=== PATIENT | male | born 1970 | race Caucasian/White ===

== ENCOUNTER 2017-02-18 22:26 | Inpatient (IN) ==
[2017-02-19] MEDS ORDERED: HYDROmorphone 2 MG/1 ML VIAL IV STA (00:43)
[2017-02-19] MEDS ORDERED: ONDANSETRON 4 MG/2 ML VIAL IV STA (00:43)
[2017-02-19 00:58] LABS: INR 1.3; PT Patient Result 13.7 SECS; Partial Thromboplastin Time 29.1 SECS (0-40)
[2017-02-19] MEDS ORDERED: HYDROmorphone 2 MG/1 ML VIAL ONE (01:03)
[2017-02-19] MEDS ORDERED: ONDANSETRON 4 MG/2 ML VIAL ONE (01:03)
[2017-02-19 01:08] LABS: Alanine Aminotransferase 21 U/L (16-61); Albumin 3.6 G/DL (3.4-5.0); Alkaline Phosphatase 122 U/L (45-117); Aspartate Amino Transferase 25 U/L (0-37); Blood Urea Nitrogen 15 MG/DL (7-18); Calcium 9.2 MG/DL (8.5-10.1); Glucose 98 MG/DL (74-106); Osmolality,Calculated 275.7 MOS/KG (273-304); Potassium 3.6 MMOL/L (3.5-5.1); Sodium 138 MMOL/L (136-145); Total Protein 7.1 G/DL (6.4-8.3); Troponin I Only 0.034 NG/ML (0.00-0.045)
[2017-02-19 01:11] LABS: Basophils # 0.1 10*3/uL (0.0-0.2); Eosinophils # 0.1 10*3/uL (0.0-0.87); Eosinophils % 2.7 % (0.00-10.9); Hematocrit 34.3 VOL% (42.0-52.0); Hemoglobin 11.3 GM/DL (14.0-18.0); Immature Granulocytes % 0.2 %; Immature Granulocytes Absolute 0.01 #; Lymphocytes # 1.6 10*3/uL (1.4-4.0); Lymphocytes % 29.7 % (21.2-54.2); Mean Corpuscular HGB Conc 32.9 GM/DL (32-36); Mean Corpuscular Hemoglobin 29 PG (27-34); Mean Corpuscular Volume 88.4 FL (87-102); Mean Platelet Volume 11.4 FL (9.6-12.0); Monocytes # 0.5 10*3/uL (0.11-0.8); Monocytes % 8.9 % (1.7-12.7); Neutrophils % 57.5 % (38.7-73.9); Platelet Count 172 T/CUMM (130-400); Red Blood Count 3.88 MC/CUMM (3.8-5.5); Red Cell Distribution Width 18.9 % (9.3-17.3); White Blood Count 5.3 T/CUMM (4-12)
--- NOTE | 2017-02-19 01:33 | Emergency Department Note ---
IMichael Kasabria, am scribing for, and in the presence of, Camila Strickland DO 00 :47. IMarco A Debra, DO, personally performed the services described in this documentation, ascribed by Walter Rodriguez in my presence, and it is both accurate and complete . Arrival - Arrival Chief Complaint: Extremity Problem Stated Complaint: feet swollen/cant breathe/tight all over ED Nursing Triage Note: Patient complains of swelling and tightness from stomach on down. Patient states that tightness around stomach makes it harder for him to breath. O2 saturation at 99% upon triage and lungs sounds clear to auscultation. +2 pitting edema noted to bilateral lower extremities upon triage. Hx of HTN and CHF. 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 Mode of Arrival: Wheelchair Limitations: No Limitations Source: Patient, Family (mother ) Time Seen by Provider: 02/19/17 00:18 - History of Present Illness HPI Narrative: This is a 46 y/o white male presenting to the ED with c/o tightness and distention of his abdomen that onset a few days ago. Pt was a heavy drinker but stopped when he was diagnosed with heart complications. Pt states he now drinkers occasionally. He is followed by Dr. Herrera. He states his abdomen is distended and it is making it hard for him to breathe. Pt also states for the past month he has had urinary incontinence and has been constipate. Pt has bilateral pedal edema and has a PMHx of HTN and CHF. Earlier today he vomited and it was yellow in color. He denies fever, chills, nausea, diarrhea, back pain , and trouble walking. This is the first time he has seen anyone for his abdomen swelling. Consistency: constant Severity: moderate Allergies/Adverse Reactions: Allergies Allergy/AdvReac Type Severity Reaction Status Date / Time Shrimp Allergy SHORTNESS Verified 01/06/16 17:08 OF BREATH Home Medications: Home Medications Medication Instructions Recorded Confirmed Type Allopurinol [Zyloprim] 300 mg PO DAILY 08/14/15 02/18/17 History Aspirin EC Tab 81 mg PO DAILY #30 tablet 08/17/15 02/18/17 Rx Atorvastatin [Lipitor] 80 mg PO BEDTIME #30 tablet 08/17/15 02/18/17 Rx Carvedilol [Coreg] 6.25 mg PO BID #60 tablet 08/17/15 02/18/17 Rx Clopidogrel [Plavix] 75 mg PO DAILY #30 tablet 08/17/15 02/18/17 Rx Famotidine Tab [Pepcid Tab] 20 mg PO BID #30 tablet 08/17/15 02/18/17 Rx Glucosamine/D3/Boswellia Mary 1 each PO DAILY 01/06/16 02/18/17 History [Osteo Bi-Flex Caplet] Lisinopril [Prinivil] 5 mg PO DAILY 08/21/16 02/18/17 History Furosemide Tab [Lasix Tab] 40 mg PO BID DIURETIC #60 tablet 09/17/16 02/18/17 Rx Azithromycin Tab [Zithromax Tab] 250 mg PO DAILY #6 tablet 10/05/16 02/18/17 Rx Review of System - Review of System 12 point system: reviewed and no additional remarkable complaints except as stated - Review of System Constitutional: Absent: chills, fever, weakness Eyes: Absent: vision change Head/Ears/Nose/Throat: Absent: nasal drainage Respiratory: Absent: cough, wheezing Cardiovascular: Absent: chest pain, dyspnea on exertion Gastrointestinal: Present: abdominal pain (distended ), nausea, vomiting, constipation. Absent: diarrhea Genitourinary male: Present: other (urinary incontinence x2 months ). Absent: dysuria Musculoskeletal: Absent: arm pain, back pain Skin: Absent: rash Neurological: Absent: headache, weakness, confusion, vertigo Psychiatric: Absent: anxiety Endocrine: Absent: fatigue Hematological/Lymphatic: Absent: easy bleeding Allergic/Immunologic: Absent: facial swelling Medical,Surgical,& Family Hx - Medical History Cardio: History of: CHF, CAD, Hypertension Neurology: No history of: Seizures Endocrine: History of: Dyslipidemia Rheumatology: History of;: Gout Musculoskeletal: History of: Back/Neck Problems - Surgical History Cardiac Surgeries: Sugical HX of: Cardiac Catheterization, Internal Defibrillator Thoracic Surgeries: Patient denies;: Organ Transplant, Lobectomy Neurologic Surgeries: Patient denies: Neurologic Surgery HEENT Surgeries: Surgical HX of: Eye Surgery (cataract surgery x 2 in 2012) - Family History Family History: Reports;: Family Heart Disease (father at age of 48. mother had mi.), Family Hypertension, Family Stroke (father had stroke.) - Social History Smoking Status: Former smoker Frequency of Alcohol Use: Occasionally Type of Drug Use: None Exam Vital Signs: Vital Signs Temperature 98.4 F 02/19/17 00:04 Pulse Rate 100 H 02/19/17 00:04 Respiratory Rate 20 02/19/17 00:04 Blood Pressure 99/72 02/19/17 00:04 O2 Sat by Pulse Oximetry 99 02/18/17 22:35 - General General appearance: alert, in no apparent distress - Head Head exam: Present: atraumatic, normocephalic, normal inspection - Eye Eye exam: Present: PERRL, EOMI, scleral icterus (jaundice ). Absent: normal appearance - ENT ENT exam: Present: normal exam, normal oropharynx, mucous membranes moist, TM's normal bilaterally, normal external ear exam - Neck Neck exam: Present: normal inspection, full ROM, trachea midline. Absent: tenderness - Chest Chest inspection: Present: normal inspection, symmetric chest wall rise. Absent : tenderness - Respiratory Respiratory exam: Present: normal lung sounds bilaterally - Cardiovascular Cardiovascular exam: Present: regular rate, normal rhythm, normal heart sounds - Abdominal Exam Abdominal exam: Present: soft, distention, normal bowel sounds. Absent: tenderness - Extremities Exam Extremities exam: Present: full ROM, normal capillary refill, pedal edema (+2 pitting edema bilaterally ). Absent: tenderness, calf tenderness - Back Exam Back exam: Present: normal inspection, full ROM. Absent: tenderness - Neurological Exam Neurological exam: Present: alert, oriented X3, CN II-XII intact, normal gait, reflexes normal - Psychiatric Psychiatric exam: Present: normal affect, normal mood - Skin Skin exam: Present: warm, dry, normal color. Absent: rash, diaphoresis Course Course Narrative: spoke with hospitalist who will admit pt Results - Labs CBC & BMP: 02/19/17 00:00 02/19/17 00:00 Disposition Clinical Impression: Congestive heart failure, Lower extremity edema Case discussed with: patient, patient's family Condition: Stable Time of Disposition: 03:11
[2017-02-19] MEDS ORDERED: FUROSEMIDE 40 MG/4 ML VIAL IV STA (02:52)
[2017-02-19] MEDS ORDERED: FUROSEMIDE 100 MG/10 ML VIAL ONE (03:00)
--- NOTE | 2017-02-19 04:05 | Hospitalist History & Physical ---
Assessment and Plan (1) Acute systolic CHF (congestive heart failure) Status: Acute Assessment and plan: Acute on chronic systolic heart failure - telemetry - serial cardiac enzymes - IV Lasix - I's and O's; daily weights - lipid panel - Echo ordered; last ef was 15% with diastolic dysfunction (09/2016) - will consult cardiology if needed - will monitor Current Visit: Yes (2) Chronic kidney disease Status: Acute Assessment and plan: Chronic Kidney Disease - at baseline - will monitor Current Visit: Yes Qualifiers: Chronic kidney disease stage: stage 2 (mild) Qualified Code(s): N18.2 - Chronic kidney disease, stage 2 (mild) History of Present Illness Chief complaint: swelling; shortness of breath History of present illness: Mr. Rolon is a 46 year old male with a history of congestive heart failure with a defibrillator, gout, and hypertension that presented to the ER for increased swelling and shortness of breath over the past week. Patient reports that his legs are chronically edematous but have worsened. Patient reports shortness of breath is worse with exertion and bending over. He reports an occasional cough with white sputum and had some posttussive vomiting in the beginning of the week. Patient denies chest pain, palpitations, diaphoresis, and all the symptoms. Patient reports taking his twice daily Lasix as prescribed but reports that he is not urinating as much as he used to in the past. Patient's ocean biologist is Dr. Perry and his primary care doctor is Dr. Tubbs. Patient reports he last saw Dr. Perry about 2 months ago. Of note, patient's last ejection fraction on echocardiogram about 5 months ago was 15% with some diastolic dysfunction. In the ER, patient was found to be in a CHF exacerbation and will be admitted to hospitalist service for further management. Home Medications Medication Instructions Recorded Confirmed Type Allopurinol [Zyloprim] 300 mg PO DAILY 08/14/15 02/18/17 History Aspirin EC Tab 81 mg PO DAILY #30 tablet 08/17/15 02/18/17 Rx Atorvastatin [Lipitor] 80 mg PO BEDTIME #30 tablet 08/17/15 02/18/17 Rx Carvedilol [Coreg] 6.25 mg PO BID #60 tablet 08/17/15 02/18/17 Rx Clopidogrel [Plavix] 75 mg PO DAILY #30 tablet 08/17/15 02/18/17 Rx Famotidine Tab [Pepcid Tab] 20 mg PO BID #30 tablet 08/17/15 02/18/17 Rx Glucosamine/D3/Boswellia Mary 1 each PO DAILY 01/06/16 02/18/17 History [Osteo Bi-Flex Caplet] Lisinopril [Prinivil] 5 mg PO DAILY 08/21/16 02/18/17 History Furosemide Tab [Lasix Tab] 40 mg PO BID DIURETIC #60 tablet 09/17/16 02/18/17 Rx Azithromycin Tab [Zithromax Tab] 250 mg PO DAILY #6 tablet 10/05/16 02/18/17 Rx Allergies Allergy/AdvReac Type Severity Reaction Status Date / Time Shrimp Allergy SHORTNESS Verified 01/06/16 17:08 OF BREATH Medical,Surgical,& Family Hx - Medical History Cardio: History of: CHF, CAD, Hypertension Neurology: No history of: Seizures Endocrine: History of: Dyslipidemia Rheumatology: History of;: Gout Musculoskeletal: History of: Back/Neck Problems - Surgical History Cardiac Surgeries: Sugical HX of: Cardiac Catheterization, Internal Defibrillator Thoracic Surgeries: Patient denies;: Organ Transplant, Lobectomy Neurologic Surgeries: Patient denies: Neurologic Surgery HEENT Surgeries: Surgical HX of: Eye Surgery (cataract surgery x 2 in 2012) - Family History Family History: Reports;: Family Heart Disease (father at age of 48. mother had mi.), Family Hypertension, Family Stroke (father had stroke.) - Social History Smoking Status: Former smoker Frequency of Alcohol Use: Occasionally Type of Drug Use: None 12 point system: reviewed and no additional remarkable complaints except as stated Exam - Constitutional Vitals: Period Temp Pulse Resp BP Sys/Knight Pulse Ox Last 24 Hr 98.4 F-98.4 F 100-100 20-20 99-99/72-72 99 General appearance: normal weight, no acute distress - Head Head exam: Present: normal inspection - Eye Eye exam: Present: EOMI - Neck Neck exam: Present: normal inspection - Respiratory Respiratory exam: Present: rales (bibasilar) - Cardiovascular Cardiovascular exam: Present: JVD (mild), regular rate and rhythm. Absent: diastolic murmur, systolic murmur - GI/Abdominal GI/Abdominal exam: Present: normal bowel sounds, distended (mild). Absent: tenderness - Extremities Exam Extremities exam: Present: edema (2+ pitting edema in bilateral lower extremities up to posterior thigh) - Neurological Exam Neurological exam: Present: alert, oriented X3 - Psychiatric Psychiatric exam: Present: normal affect, normal mood - Skin Skin exam: Present: normal color, warm, dry Results - Labs CBC & BMP: 02/19/17 00:00 02/19/17 00:00 - EKG EKG results: no acute changes - Diagnostic Findings Procedure: Chest x-ray: pending
[2017-02-19] MEDS ORDERED: MORPHINE 2 MG/1 ML SYRINGE IV PRN (05:03)
[2017-02-19] MEDS ORDERED: ONDANSETRON 4 MG/2 ML VIAL IV PRN (05:03)
[2017-02-19] MEDS ORDERED: guaiFENesin/DM ER 600-30 MG TABLET PO PRN (05:03)
[2017-02-19] MEDS ORDERED: ACETAMINOPHEN 325 MG TABLET PO PRN (05:03)
[2017-02-19 06:56] LABS: Troponin I Only 0.027 NG/ML (0.00-0.045)
[2017-02-19] MEDS: GLUCOSAMINE 500 MG TABLET PO SCH (08:22)
[2017-02-19] MEDS: FAMOTIDINE 20 MG TABLET PO SCH ×2 (08:23→20:35)
[2017-02-19] MEDS: ALLOPURINOL 300 MG TABLET PO SCH (08:23)
[2017-02-19] MEDS: ENOXAPARIN 40 MG/0.4 ML SYRINGE SUBCUT SCH (08:23)
[2017-02-19] MEDS: CLOPIDOGREL 75 MG TABLET PO SCH (08:23)
[2017-02-19] MEDS: LISINOPRIL 5 MG TABLET PO SCH (08:24)
[2017-02-19] MEDS: FUROSEMIDE 40 MG/4 ML VIAL IV SCH ×2 (08:24→16:45)
[2017-02-19] MEDS: ASPIRIN EC 81 MG TABLET PO SCH (08:24)
[2017-02-19] MEDS ORDERED: CARVEDILOL 6.25 MG TABLET PO SCH (09:00)
--- NOTE | 2017-02-19 09:02 | XRay Report ---
XR chest 1V portable Indication: Shortness of breath Comparison: 27 September 2016 Findings: The heart and mediastinum are stable in size and configuration. Pacemaker device is unchanged in position. The pulmonary vascularity is normal in caliber. No lung infiltrates, effusions, pneumothorax or other abnormality is demonstrated. Impression: No acute cardiopulmonary disease. PROCEDURE INTERPRETED AT [facility] DEPARTMENT OF RADIOLOGY Final Report Signed by: Dr. Herson Egan
--- NOTE | 2017-02-19 10:36 | Cardiology Consult Note ---
Assessment and Plan - Time spent with patient Time spent with patient: Greater than 30 minutes (1) Acute on chronic heart failure Status: Acute Assessment and plan: The patient has had chronic LV dysfunction and no shortness of breath edema but no real severe findings for pulmonary edema. This may indicate some element now right heart failure. Current Visit: Yes (2) Edema, lower extremity Status: Acute Assessment and plan: This is developed recently but has had this previously. This is probably secondary to his heart failure. Question there is not some element of right heart failure now. Current Visit: Yes (3) Chronic renal insufficiency Status: Acute Assessment and plan: This is persistent with a creatinine of 1.6. Current Visit: Yes (4) Ischemic dilated cardiomyopathy Status: Chronic Assessment and plan: He has diffuse coronary artery disease but his cardiomyopathy is probably secondary to ischemia. This was an ejection fraction 10-15%. He has echocardiogram ordered and we will follow-up on this. Current Visit: No (5) S/P implantation of automatic cardioverter/defibrillator (AICD) Status: Chronic Assessment and plan: He has not received any shocks that he is aware of. He did have an episode of nonsustained ventricular tachycardia since admission. Current Visit: No (6) Lower extremity edema Status: Acute Assessment and plan: This is developed recently. Current Visit: Yes (7) Nonsustained ventricular tachycardia Status: Acute Assessment and plan: This was demonstrated on his telemetry. Will monitor this. We will go ahead and add potassium replacement since she has potassium 3.6. And check his magnesium tomorrow. Current Visit: Yes History of Present Illness - Data of Consult Patient: known to practice within the last 3 years Consult date: 02/19/17 Requesting Physician: Max Norman - Consult Narrative Reason for consult: Shortness of breath with known history of cardiomyopathy History of present illness: Mr. Rolon is a 46 year old male who is followed by Dr. Valencia Perry. He has a history having severe cardiomyopathy with a single-chamber AICD. His ejection fraction in the past has been 10-15%. He has had episodes of some heart failure. Recently he has had some progressive lower extremity edema in stating that he has not been peeing on a routine regular basis or not as much as he typically feels he should. He has had no angina but has a history of significant multivessel coronary artery disease. He has not had percutaneous coronary intervention or bypass surgery. The patient still been fairly active. His complaint with his shortness of breath his lower extremity edema and increasing abdominal girth. He has had minimal PND and orthopnea. His chest x-ray reveals really no acute changes in lung mack and no real decompensation. His BNP though was 2159, his troponin is within normal limits. CPK and MB fraction is normal. He does have slight elevated creatinine which is chronic. He has had an echocardiogram ordered but we do not have the results, he also has renal ultrasound which results are pending. His ECG telemetry reveals sinus rhythm with a QRS duration 136 ms. On telemetry has had one episode of ventricular tachycardia was nonsustained. Historically he has not had any defibrillation treatments from his AICD. CC: Elba Lyman MD - Home Medications and Allergies Home Medications: Home Medications Medication Instructions Recorded Confirmed Type Allopurinol [Zyloprim] 300 mg PO DAILY 08/14/15 02/18/17 History Aspirin EC Tab 81 mg PO DAILY #30 tablet 08/17/15 02/18/17 Rx Atorvastatin [Lipitor] 80 mg PO BEDTIME #30 tablet 08/17/15 02/18/17 Rx Carvedilol [Coreg] 6.25 mg PO BID #60 tablet 08/17/15 02/18/17 Rx Clopidogrel [Plavix] 75 mg PO DAILY #30 tablet 08/17/15 02/18/17 Rx Famotidine Tab [Pepcid Tab] 20 mg PO BID #30 tablet 08/17/15 02/18/17 Rx Glucosamine/D3/Boswellia Mary 1 each PO DAILY 01/06/16 02/18/17 History [Osteo Bi-Flex Caplet] Lisinopril [Prinivil] 5 mg PO DAILY 08/21/16 02/18/17 History Furosemide Tab [Lasix Tab] 40 mg PO BID DIURETIC #60 tablet 09/17/16 02/18/17 Rx Azithromycin Tab [Zithromax Tab] 250 mg PO DAILY #6 tablet 10/05/16 02/18/17 Rx Allergies/Adverse Reactions: Allergies Allergy/AdvReac Type Severity Reaction Status Date / Time Shrimp Allergy SHORTNESS Verified 01/06/16 17:08 OF BREATH Review of systems: Constitutional: Denies anorexia, chills, fatigue, fever, frequent falls, night sweats, weight gain, weight loss Eyes: Denies visual changes or loss of vision Ears: Denies decreased hearing, vertigo Nose, mouth and throat: Denies dysphagia, epistaxis, headaches, neck pain, tongue swelling, Neck: Denies thyromegaly or masses. No stiffness. Cardiovascular: as per HPI Respiratory: Denies cough, hemoptysis, wheezing, snoring Gastrointestinal: Does complain of having some recent increased abdominal girth. Denies abdominal pain, constipation, dyspepsia, dysphagia, hematemesis, hematochezia, melena, nausea, vomiting Genitourinary: Denies dysuria, hematuria, nocturia Musculoskeletal: Denies arthralgias, joint swelling, muscle weakness, myalgias. Has had some lower extremity edema. Neurological: denies abnormal gait, abnormal speech, confusion, convulsions, frequent falls, headaches, memory loss, syncope Psychiatric: Denies anxiety, confusion, depression Endocrine: Denies cold intolerance, fatigue, heat intolerance Hematologic/Lymphatic: Denies easy bleeding, easy bruising Dermatologic: Denies Rash, itching, shingles Medical,Surgical,& Family Hx - Medical History Cardio: History of: CHF, CAD, Hypertension Neurology: No history of: Seizures Endocrine: History of: Dyslipidemia Rheumatology: History of;: Gout Musculoskeletal: History of: Back/Neck Problems - Surgical History Cardiac Surgeries: Sugical HX of: Cardiac Catheterization, Internal Defibrillator Thoracic Surgeries: Patient denies;: Organ Transplant, Lobectomy Neurologic Surgeries: Patient denies: Neurologic Surgery HEENT Surgeries: Surgical HX of: Eye Surgery (cataract surgery x 2 in 2013) - Family History Family History: Reports;: Family Heart Disease (father at age of 48. mother had mi.), Family Hypertension, Family Stroke (father had stroke.) - Social History Smoking Status: Former smoker Frequency of Alcohol Use: Occasionally Type of Drug Use: None Physical Examination Vital Signs Temp Pulse Resp BP Pulse Ox 98.4 F 100 H 20 99/72 99 02/18/17 22:35 02/18/17 22:35 02/18/17 22:35 02/18/17 22:35 02/18/17 22:35 Other: General appearance: normal weight, no acute distress, he is lying flat in the bed watching TV. Head exam: normal inspection, atraumatic Eye exam: Pupils are equal and reactive. EOMI. There is no trauma. Ear exam: Anatomically normal. Normal auditory acuity to conversation. Oral exam: No significant oral lesions. Neck exam: normal inspection no JVD. No carotid bruit. Trachea is in midline. Respiratory exam: clear to auscultation bilaterally posteriorly and anteriorly with good air movement. No rales, rhonchi or wheezes except for maybe some scattered crackles in his right lower base. Cardiovascular exam: regular rate and rhythm, no murmur or gallop or rub. No precordial lift. No bruits over the major arteries. Chest wall/torso: Anatomically normal. No tenderness, deformity Peripheral Pulses: 2+ throughout. GI/Abdominal exam: normal bowel sounds, soft and nontender, no abdominal bruits or pulsatile masses. His abdomen though is somewhat protuberant with what appears to be a fluid wave on exam. Musculoskeletal/Extremities exam: normal inspection without edema or cyanosis. No deformities or trauma. Neurological exam: alert, oriented X3. There is no gross neurologic deficits. Psychiatric exam: normal affect, normal mood. Cognitive function is grossly intact. Skin exam: normal color, warm. No rashes or other skin lesions. Result/EKG - Labs CBC & BMP: 02/19/17 00:00 02/19/17 00:00 Lab Results: I have reviewed the past 24 hour labs (BMP is elevated, his potassium level on the low side. He has elevated creatinine and renal insufficiency.) Labs: Laboratory Results - last 24 hr 02/19/17 02/19/17 06:04 06:04 Total Creatine Kinase 39 D CK-MB (CK-2) < 1.0 Troponin I 0.027 PSA Diagnostic 0.1 - Impressions Impressions: Telemetry with normal sinus rhythm. Episode of nonsustained ventricular tachycardia.
--- NOTE | 2017-02-19 10:47 | Ultrasound Report ---
Renal ultrasound Indication: Renal failure Comparison: None available Findings: Small cystocele the right kidney 1.1 cm in size. Otherwise the kidneys are normal in size and echogenicity. No hydronephrosis or nephrolithiasis is seen. The right renal length is 11.1 cm. The left renal length is 12.2 cm. No free fluid or other abnormality is seen. Impression: No evidence of abnormality demonstrated. Ultrasound images stored and captured. PROCEDURE INTERPRETED AT [facility] DEPARTMENT OF RADIOLOGY Final Report Signed by: Dr. Herson Egan
--- NOTE | 2017-02-19 10:47 | EKG Report ---
Stationary ECG Study [facility] Test Date: 02/19/2017 10:47:26 AM Pat Name: WAQAR PRATT Department: Room: 281 Gender: M Launch Leader: ANDREE : 1970 Requested by: Yoseph Canales Order Number: [id number] Reading MD: EMMY BARAHONA Intervals [place] Rate: 92 P: 62 ND: 185 QRS: 103 QRSD: 122 T: -50 QT: 396 QTc: 445 Interpretive Statements SINUS RHYTHM WITH OCCASIONAL VENTRICULAR PREMATURE COMPLEXES MARKED RIGHT AXIS DEVIATION Electronically Signed On 02-20-17 16:46:25 CDT by EMMY BARAHONA [email or web address]
--- NOTE | 2017-02-19 10:53 | Hospitalist Progress Note ---
Assessment and Plan (1) Acute systolic CHF (congestive heart failure) Status: Acute Assessment and plan: lasix IV bid, metoprolol started Current Visit: Yes (2) Elevated CO2 level Status: Acute Assessment and plan: ABG to correlate Current Visit: Yes (3) Tachycardia Status: Acute Assessment and plan: metoprolol started Current Visit: Yes (4) Urinary retention Status: Acute Assessment and plan: 600 ml residual, catheter, ? whether he can tolerate flomax due to low b/p, Urology consult Current Visit: Yes (5) Nonsustained ventricular tachycardia Status: Acute Assessment and plan: replace potassium and mag, s/p AICD Current Visit: Yes (6) Status post implantation of automatic cardioverter/defibrillator (AICD) Status: Acute Current Visit: No (7) Chronic kidney disease Status: Acute Assessment and plan: stable stage III renal disease, US renal normal size kidneys Current Visit: Yes Qualifiers: Chronic kidney disease stage: stage 2 (mild) Qualified Code(s): N18.2 - Chronic kidney disease, stage 2 (mild) Hospitalist: Subjective Interval history: Patient does not talk very much. Patient's mother and answer most of the questions. Patient has a history of having difficulty urinating. Post bladder residual was over 600. Reported to me that patient had a 15 beat run of V. tach. I will ask cardiology to see him. I will also ask urology to see him due to his urinary retention. Exam - Constitutional Vitals: Period Temp Pulse Resp BP Sys/Knight Pulse Ox Last 24 Hr 97.3 F-97.9 F 92-107 18-18 91-102/33-80 93-100 Exam: Heart Rate-[tachy] Lungs-[diminished, few crackles ] GI-[+bs soft, NT] Ext-[1+ edema] Neuro [Motor 5/5], [alert and oriented times 3] psych [normal mood and flat affect] General [no acute distress] Results - Labs CBC & BMP: 02/19/17 00:00 02/19/17 00:00 Lab Results: I have reviewed the past 24 hour labs - Diagnostic Findings Procedure: Chest x-ray: report reviewed by me (Nothing acute), Ultrasound: report reviewed by me (Renal normal size kidneys no medical renal disease)
[2017-02-19] MEDS ORDERED: TAMSULOSIN 0.4 MG CAPSULE PO SCH (11:00)
[2017-02-19 11:56] LABS: Allen Test Positive; Pt O2 Delivery Device Room Air
[2017-02-19 11:57] LABS: ABG Base Excess 8.8 MMOL/L (-2.5-2.5); ABG HCO3 32.6 MMOL/L (20-26); ABG Oxygen Saturation 96.4 % (95-100); ABG PCO2 44.5 MM HG (35-48); ABG PH 7.483 (7.35-7.45); ABG PO2 87.6 MM HG (80-95)
--- NOTE | 2017-02-19 12:20 | Urology Progress Note ---
Urology - PN: Subj Interval history: Thanks for calling Full consult dictated A: BPH P: Flomax has been started No indication for hilliard cath - as pt voiding spontaneously OK to place hilliard if needed F/U with urology as outpt - he will likely need prostate treatment in future Exam - Constitutional Vitals: Period Temp Pulse Resp BP Sys/Knight Pulse Ox Last 24 Hr 97.3 F-97.9 F 92-107 18-18 91-102/33-80 93-100 Results - Labs CBC & BMP: 02/19/17 00:00 02/19/17 00:00
[2017-02-19] MEDS: POTASSIUM CHLORIDE 20 MEQ TABLET PO SCH ×2 (12:26→20:35)
[2017-02-19 12:50] LABS: Troponin I Only 0.036 NG/ML (0.00-0.045)
--- NOTE | 2017-02-19 16:13 | ECHO Report ---
Edwin Rolon Exam Date: 02/19/2017 10:17 Referring Physician: Technologist: Natalia Rodrigues Age: 46 Ht (in): 75 Wt (lb): 281 Gender: M Exam Location: [facility] Echo Indications: ischemic cardiomyopathy, ICD, CKD, CHF, lower extremities edema BP: 102 / 80 HR: 99 Rhythm: Sinus Technical Quality: Good IMPRESSIONS 1. Left ventricle is moderate to severely dilated with severe systolic dysfunction with global hypokinesis. There is mild concentric left ventricular hypertrophy. 2. Mildly dilated right ventricle and atrium as well as left atrium. 3. Mitral valve is mildly thickened with mild regurgitation. 4. Mild tricuspid valve regurgitation. 5. Right-sided pressures appear to be normal. MEASUREMENTS (Male / Female) Normal Values 2D ECHO LV Diastolic Diameter PLAX 6.3 cm 4.2 - 5.9 / 3.9 - 5.3 cm LV Systolic Diameter PLAX 6.1 cm LV Fractional Shortening PLAX 3.4 % IVS Diastolic Thickness 1.4 cm 0.6 - 1.0 / 0.6 - 0.9 cm LVPW Diastolic Thickness 1.3 cm 0.6 - 1.0 / 0.6 - 0.9 cm RV Internal Dim ED PLAX 3.3 cm Aortic Root Diameter 2.8 cm LA Systolic Diameter LX 4.8 cm 3.0 - 4.0 / 2.7 - 3.8 cm DOPPLER TR Peak Velocity 228.0 cm/s TR Peak Gradient 20.8 mmHg FINDINGS Left Ventricle Moderate to severely dilated left ventricle with severe systolic dysfunction with an ejection fraction 10-15%. There is mild concentric left ventricular hypertrophy. Global hypokinesis. Right Ventricle Moderately increased right ventricular size. Right Atrium Moderately increased right atrial size. Left Atrium Moderately increased left atrial diameter. Mitral Valve Mildly thickened mitral valve. Mild mitral valve regurgitation. Aortic Valve Aortic valve is anatomically morphologically normal without Doppler abnormalities. Tricuspid Valve Tricuspid valve appears anatomically normal with mild regurgitation. Estimated right-sided pressures of 26-31 mmHg. Pulmonic Valve Pulmonic valve sclerosis. Trace pulmonary valve regurgitation. Pericardium Trivial pericardial effusion. Aorta Normal size aortic root and proximal ascending aorta. Yoseph Barrera MD (Electronically Signed) Final Date: 19 Feb 2017 16:13
[2017-02-19 19:14] LABS: Troponin I Only 0.054 NG/ML (0.00-0.045)
[2017-02-19] MEDS: ATORVASTATIN 80 MG TABLET PO SCH (20:35)
[2017-02-19] MEDS: TAMSULOSIN 0.4 MG CAPSULE PO SCH (20:36)
[2017-02-19] MEDS: METOPROLOL SUCCINATE XL 25 MG TABLET PO SCH (20:39)
--- NOTE | 2017-02-19 23:22 | Consultation ---
DATE OF CONSULT: 02/19/2017 REASON FOR CONSULTATION: 1. Urinary hesitancy. 2. Suspected urinary retention. Thank you for asking Urology Services to see Mr. Rolon. HISTORY OF PRESENT ILLNESS: Mr. Rolon is a 46-year-old male who was admitted with acute congest susie heart failure. He is currently being diuresed with Lasix and is obviously producing plenty of u rine as a result. I have been asked to see him for difficulty urinating. He states that in October in [place], he ended up requiring a single catheterization to help empty the bladder. It sounds li ke he has had a 2-to-3-year history of difficulty urinating, but no history of retention. He has ne maik been on any prostate medication and he has not had to see urologist. I spoke to the nursing staff today after consult was made. They stated that he was unable to urinat e after getting high doses of Lasix, but he ended up voiding approximately 400 mL spontaneously. Po stvoid bladder ultrasound revealed a residual of around 600 mL. A catheter was attempted to be plac ed by the nursing staff, but apparently the meatus was too small to accommodate an 18-Azeri Carlin c atheter. At this point, I visited the patient and he stated he was in no distress and actually had the urgency to urinate. I asked him to go ahead and get up and go to the bathroom and he ended up v oiding 300 mL of clear yellow urine without difficulty. He has no flank pain, fever, or chills. He has no dysuria, no sign of urinary tract infection. He states that his abdomen has progressively been distended, but this has been going on for weeks. On admission, his creatinine was 1.6, which is elevated per his baseline. He had a renal ultrasound , which shows no evidence of hydronephrosis. Past medical, surgical, social, and family history reviewed and noted on the chart. REVIEW OF SYSTEMS: A 12-system review is performed. See history of present illness for pertinent p ositives. PHYSICAL EXAMINATION GENERAL: A well-developed, well-nourished male, in no distress. HEENT: Normocephalic, atraumatic. NECK: No JVD. CHEST: Expands bilaterally. ABDOMEN: Soft, nontender. It is tense, but globally so consistent with visceral adiposity. There does not appear to be a distended bladder and the suprapubic region is certainly benign. His abdome n is tight ranging from bilateral flanks to the epigastric region down to the level of the suprapubi c region consistent with intra-abdominal adiposity. There does not appear to be a panniculus, and a gain it does not appear that the bladder is distended. : Urine is seen in the urinal, clear yellow, approximately 300 mL. I explained Mr. Rolon that he is likely retaining fluid due to his congestive heart failure exac erbation. He is currently receiving a diuretic, which will create high volumes of urine. He likely has a baseline enlarged prostate and it will take him some time to empty this out, but he is not in urinary retention, he is not in any distress, and therefore, I do not believe a Carlin catheter is i ndicated. We discussed urethral catheterization. He would like to avoid this if at all possible. Certainly, if he is unable to urinate, then a Carlin catheter is needed, but for right now I think we can hold off on this. IMPRESSION: 1. Prostate hyperplasia. 2. Urinary hesitancy. 3. Polyuria secondary to diuresis. PLAN: 1. Flomax has been added by the primary team. 2. Continue to monitor his urine output. 3. Okay for urethral catheterization with a smaller bore catheter if needed. 4. I recommended that he follow up with Urology upon discharge assuming he can void during this hos pitalization. Please do not hesitate to call Urology if we can be of further assistance.
[2017-02-20] MEDS: ZALEPLON 5 MG CAPSULE PO PRN ×2 (01:47→22:24)
[2017-02-20 04:51] LABS: Basophils % 0.6 % (0.0-0.8); Eosinophils # 0.1 10*3/uL (0.0-0.87); Eosinophils % 2.5 % (0.00-10.9); Hematocrit 32.8 VOL% (42.0-52.0); Hemoglobin 10.7 GM/DL (14.0-18.0); Immature Granulocytes % 0.4 %; Immature Granulocytes Absolute 0.02 #; Lymphocytes # 1.7 10*3/uL (1.4-4.0); Mean Corpuscular HGB Conc 32.6 GM/DL (32-36); Mean Corpuscular Hemoglobin 28 PG (27-34); Mean Corpuscular Volume 86.5 FL (87-102); Mean Platelet Volume 12.2 FL (9.6-12.0); Monocytes # 0.5 10*3/uL (0.11-0.8); Monocytes % 8.7 % (1.7-12.7); Neutrophils # 2.8 10*3/uL (1.4-7.4); Neutrophils % 54.8 % (38.7-73.9); Platelet Count 173 T/CUMM (130-400); Red Blood Count 3.79 MC/CUMM (3.8-5.5); Red Cell Distribution Width 18.7 % (9.3-17.3); White Blood Count 5.2 T/CUMM (4-12)
[2017-02-20 05:30] LABS: Calcium 9.2 MG/DL (8.5-10.1); Magnesium 1.9 MG/DL (1.8-2.4); Osmolality,Calculated 273.8 MOS/KG (273-304); Potassium 3.8 MMOL/L (3.5-5.1)
[2017-02-20 05:31] LABS: Albumin 3.4 G/DL (3.4-5.0); Bilirubin,Total 2.8 MG/DL (0.2-1.0); Calcium 9.2 MG/DL (8.5-10.1); Magnesium 1.9 MG/DL (1.8-2.4); Osmolality,Calculated 273.8 MOS/KG (273-304); Potassium 3.8 MMOL/L (3.5-5.1); Risk Ratio 3.22; Total Protein 6.3 G/DL (6.4-8.3); VLDL CHOLESTEROL 12.6 MG/DL
[2017-02-20] MEDS: ENOXAPARIN 40 MG/0.4 ML SYRINGE SUBCUT SCH (09:59)
[2017-02-20] MEDS: CLOPIDOGREL 75 MG TABLET PO SCH (09:59)
[2017-02-20] MEDS: POTASSIUM CHLORIDE 20 MEQ TABLET PO SCH ×2 (09:59→20:35)
[2017-02-20] MEDS: GLUCOSAMINE 500 MG TABLET PO SCH (09:59)
[2017-02-20] MEDS: ASPIRIN EC 81 MG TABLET PO SCH (09:59)
[2017-02-20] MEDS: FAMOTIDINE 20 MG TABLET PO SCH ×2 (09:59→20:34)
[2017-02-20] MEDS: METOPROLOL SUCCINATE XL 25 MG TABLET PO SCH ×3 (10:00→20:34)
[2017-02-20] MEDS: LISINOPRIL 5 MG TABLET PO SCH (10:00)
[2017-02-20] MEDS: FUROSEMIDE 40 MG/4 ML VIAL IV SCH ×2 (10:00→17:43)
[2017-02-20] MEDS: ALLOPURINOL 300 MG TABLET PO SCH (10:00)
[2017-02-20 11:49] LABS: Apearance,Urine CLEAR (Clear); Bilirubin,Urine Negative (Negative); Blood, Urine Negative (Negative); Glucose,Urine (UA) Negative (Negative); Hyaline Casts,Urine 1 /LPF (0-3); Ketones,Urine Negative (Negative); Nitrite,Urine Negative (Negative); Protein,Urine Negative; RBC,Urine 1 /HPF (0-4); Urine Color Yellow (Yellow); Urine Specific Gravity 1.004 (1.001-1.035); WBC,Urine <1 /HPF (0-6)
--- NOTE | 2017-02-20 14:05 | Hospitalist Progress Note ---
Assessment and Plan (1) Congestive heart failure Status: Chronic Assessment and plan: 1)loer extremity edema- Dr Barrera suspects more right than left sided heart failure as he has no pulmonary edema or increased shortness of breath. diuresing. 2)CKD- creatinine 1.8- bsaeline 1.6 3)dilated cardiomyopathy- EF 10% on last echo- repeat pending 4)AICD 5)NSVT- replacing electrolytes- no more episodes. Current Visit: Yes (2) Hypertension Status: Chronic Current Visit: No (3) Ischemic dilated cardiomyopathy Status: Chronic Current Visit: No (4) Status post implantation of automatic cardioverter/defibrillator (AICD) Status: Acute Current Visit: No (5) Chronic kidney disease Status: Acute Current Visit: Yes Qualifiers: Chronic kidney disease stage: stage 2 (mild) Qualified Code(s): N18.2 - Chronic kidney disease, stage 2 (mild) (6) Urinary retention Status: Acute Current Visit: Yes Hospitalist: Subjective Interval history: Mr Rolon is breathing a little better, but has not been able to void. His nurse placed hilliard catheter and he had 400 out initially. He was started on flomax yesterday. He has not had anymore NSVT per nurses. Exam - Constitutional Vitals: Period Temp Pulse Resp BP Sys/Knight Pulse Ox Last 24 Hr 96.6 F-98.7 F 90-102 12-20 95-120/68-77 96-100 General appearance: normal weight, mild distress (indicating abdominal fullness prior to hilliard placement) - Eye Eye exam: Present: EOMI. Absent: scleral icterus - Respiratory Respiratory exam: Present: clear to auscultation bilaterally - Cardiovascular Cardiovascular exam: Present: regular rate and rhythm - GI/Abdominal GI/Abdominal exam: Present: normal bowel sounds, distended, soft. Absent: tenderness - Extremities Exam Extremities exam: Present: edema (dependent edema in lower abdomen and legs) - Neurological Exam Neurological exam: Present: alert, oriented X3 - Skin Skin exam: Present: warm, dry Results - Labs CBC & BMP: 02/20/17 03:59 02/20/17 03:59 Lab Results: I have reviewed the past 24 hour labs
--- NOTE | 2017-02-20 14:40 | Cardiology Progress Note ---
<Sarah Foster E - Last Filed: 02/20/17 14:44> Assessment and Plan - Time spent with patient Time spent with patient: Less than 30 minutes (1) Acute on chronic heart failure Status: Acute Assessment and plan: SEE PLAN OF CARE LISTED BELOW. Current Visit: Yes Qualifiers: Heart failure type: combined Qualified Code(s): I50.43 - Acute on chronic combined systolic (congestive) and diastolic (congestive) heart failure (2) Edema, lower extremity Status: Acute Assessment and plan: SEE PLAN OF CARE LISTED BELOW. Current Visit: Yes (3) Chronic renal insufficiency Status: Chronic Assessment and plan: SEE PLAN OF CARE LISTED BELOW. Current Visit: Yes (4) Ischemic dilated cardiomyopathy Status: Chronic Assessment and plan: SEE PLAN OF CARE LISTED BELOW. Current Visit: No (5) S/P implantation of automatic cardioverter/defibrillator (AICD) Status: Chronic Assessment and plan: SEE PLAN OF CARE LISTED BELOW. Current Visit: No (6) Nonsustained ventricular tachycardia Status: Acute Assessment and plan: SEE PLAN OF CARE LISTED BELOW. Current Visit: Yes (7) Hypertension Status: Chronic Assessment and plan: SEE PLAN OF CARE LISTED BELOW. Current Visit: No (8) Dyslipidemia Status: Chronic Assessment and plan: SEE PLAN OF CARE LISTED BELOW. Current Visit: No Cardiology - PN: Subj Interval history: [employer]: DR. JOHNSON PCP: DR. PETERSON Mr. Rolon is a 46 y/o WM with a history of severe ischemic cardiomyopathy status post single-chamber AICD, coronary artery disease, dyslipidemia, hypertension, chronic renal insufficiency. He has a history of significant multivessel coronary artery disease that has been treated medically. He has had progressive lower extremity edema with shortness of breath and an increase in abdominal girth. His last weight in clinic on 12/22/16 was 210# which is now up to 220#. His echocardiogram on 02/19/17 reveals an EF of 10-15% with mild mitral regurgitation, mild tricuspid regurgitation, normal right sided pressures, and mildly dilated right ventricle, right atrium, and left atrium. He has had one episode of nonsustained ventricular tachycardia since admission. His potassium and magnesium are being replaced. Creatinine on admission was 1.6, now up to 1.8. Urology has seen him in consultation for feelings of incomplete bladder emptying. He has been started on Flomax for BPH and hilliard catheter has since been placed. Renal ultrasound revealed no evidence of abnormality. Mr. Rolon reports he is feeling somewhat better today. He tells me his lower extremity swelling and his shortness of breath seems to be improved. He is on a 1500ml fluid restriction and is slightly negative in his I&O's. Dr. Dumas to follow with further plan and addendum. ASSESSMENT/PLAN: 1. ACUTE ON CHRONIC HEART FAILURE - Patient has had chronic LV dysfunction with EF 10-15%. 2. LOWER EXTREMITY EDEMA - This has progressively worsened recently but is slowly improving with diuretic therapy. This is probably secondary to his acute on chronic combined heart failure. Continue current therapy with diuretics, isaura inhibitor, beta blockers. 3. CHRONIC RENAL INSUFFICIENCY - This is persistent with baseline creatinine around 1.6, up to 1.8 today. 4. ISCHEMIC DILATED CARDIOMYOPATHY - He has diffuse coronary artery disease but his cardiomyopathy is probably secondary to ischemia. His EF is 10-15% per echo 02/19/17. 5. S/P IMPLANTATION OF AICD - He has not received any shocks that he is aware of. He did have an episode of nonsustained ventricular tachycardia since admission. 6. NONSUSTAINED VT - This was demonstrated on the surveillance system monitor yesterday morning. He has had no recurrent episodes since. We are repleting his potassium and magnesium. 7. HYPERTENSION - This is currently well controlled. We will continue to monitor and adjust medications as needed. He is on isaura inhibitor and beta mimi. Will continue to monitor renal function with ISAURA inhibitor present. 8. DYSLIPIDEMIA - Continue Lipitor. Exam (Progress Note) - Constitutional Vitals: Period Temp Pulse Resp BP Sys/Knight Pulse Ox Last 24 Hr 96.6 F-98.7 F 90-102 12-20 95-120/68-77 96-100 Exam: General: Present: Appears Well, No Apparent Distress. Pleasant and cooperative. Appears comfortable. HEENT: Present: PERRL, Normocephaly, atraumatic. Mucus Membranes Moist. No jaundice noted. Conjunctiva moist and clear, sclerae anicteric Neck: Present: Supple Neck, Midline Trachea, No Masses, No Bruit, No tenderness Cardiac: Present: Regular Rate and Rhythm, No Murmur Lungs: Present: Clear to auscultation bilaterally, no wheeze, rhonchi, rales. Neuro: Present: Awake, alert, and oriented x3. Moves all extremities well without hemiparesis or paralysis. Grossly Intact. Absent: Resting Tremor, Essential Tremor Abdomen: Present: Soft, Active Bowel Sounds, distended, ascites. No abdominal bruit or thrill noted. Skin: Present: Clear. Absent: Rash, No skin breakdown. Back: Normal inspection, no vertebral tenderness. Musculoskeletal: Present: No Fluid Collection, No Pain, Normal Range of Motion Extremities: Present: Normal Gait, No Clubbing, No Cyanosis, Upper Extr. Pulses 2+, Lower Extr. Pulses 2+, 1+ pitting edema to LLE, 2-3+ edema to RLE. Capillary refill less than 3 seconds. Result/EKG - Labs CBC & BMP: 02/20/17 03:59 02/20/17 03:59 Lab Results: I have reviewed the past 24 hour labs Labs: Laboratory Results - last 24 hr 02/19/17 02/20/17 02/20/17 17:51 03:59 03:59 WBC 5.2 RBC 3.79 L Hgb 10.7 L Hct 32.8 L MCV 86.5 L MCH 28 MCHC 32.6 RDW 18.7 H Plt Count 173 MPV 12.2 H Neut % (Auto) 54.8 Lymph % (Auto) 33.0 Travis % (Auto) 8.7 Eos % (Auto) 2.5 Baso % (Auto) 0.6 Neut # (Auto) 2.8 Lymph # (Auto) 1.7 Travis # (Auto) 0.5 Eos # (Auto) 0.1 Baso # (Auto) 0.0 Immature Gran % 0.4 Nucleated RBC % 0.0 Immature Gran # 0.02 Nucleated RBCs # 0.00 Sodium 137 Potassium 3.8 Chloride 93 L Carbon Dioxide 32 Anion Gap 15.8 H BUN 19 H Creatinine 1.80 H GFR Calculation 59 BUN/Creatinine Ratio 10.00 Glucose 89 Calculated Osmolality 273.8 Calcium 9.2 Magnesium 1.9 Total Bilirubin 2.80 H AST 21 ALT 17 Alkaline Phosphatase 118 H Total Creatine Kinase 34 L D CK-MB (CK-2) < 1.0 Troponin I 0.054 H D B-Natriuretic Peptide Total Protein 6.3 L Albumin 3.4 Globulin 2.9 Albumin/Globulin Ratio 1.1 Triglycerides 63 Cholesterol 58 LDL Cholesterol 37.0 VLDL Cholesterol 12.6 HDL Cholesterol 18 L Heart Disease Risk Ratio 3.22 Urine Color Urine Appearance Urine pH Ur Specific Hydes Urine Protein Urine Glucose (UA) Urine Ketones Urine Blood Urine Nitrate Urine Bilirubin Urine Urobilinogen Urine Leukocytes Urine RBC Urine WBC Hyaline Casts Ur Culture Indicated? 02/20/17 02/20/17 02/20/17 03:59 03:59 11:36 WBC RBC Hgb Hct MCV MCH MCHC RDW Plt Count MPV Neut % (Auto) Lymph % (Auto) Travis % (Auto) Eos % (Auto) Baso % (Auto) Neut # (Auto) Lymph # (Auto) Travis # (Auto) Eos # (Auto) Baso # (Auto) Immature Gran % Nucleated RBC % Immature Gran # Nucleated RBCs # Sodium 137 Potassium 3.8 Chloride 93 L Carbon Dioxide 31 Anion Gap 16.8 H BUN 19 H Creatinine 1.80 H GFR Calculation 59 BUN/Creatinine Ratio 10.00 Glucose 86 Calculated Osmolality 273.8 Calcium 9.2 Magnesium 1.9 Total Bilirubin AST ALT Alkaline Phosphatase Total Creatine Kinase CK-MB (CK-2) Troponin I B-Natriuretic Peptide 3323 H Total Protein Albumin Globulin Albumin/Globulin Ratio Triglycerides Cholesterol LDL Cholesterol VLDL Cholesterol HDL Cholesterol Heart Disease Risk Ratio Urine Color Yellow Urine Appearance Clear Urine pH 8.0 Ur Specific Hydes 1.004 Urine Protein Negative Urine Glucose (UA) Negative Urine Ketones Negative Urine Blood Negative Urine Nitrate Negative Urine Bilirubin Negative Urine Urobilinogen 4.0 H Urine Leukocytes Negative Urine RBC 1 Urine WBC <1 Hyaline Casts 1 Ur Culture Indicated? Not indicated - EKG EKG results: interpreted by me, sinus rhythm <Teto Dumas - Last Filed: 02/20/17 15:38> Cardiology - PN: Subj Interval history: Mr. Laureano presents with primarily right heart failure with abdominal distention and peripheral edema. I suspect he has intestinal edema and has not been absorbing his Lasix. He is diuresed well while in the hospital. He has a Hilliard in place and is feeling better and we will continue diuresis. Exam (Progress Note) - Constitutional Vitals: Period Temp Pulse Resp BP Sys/Knight Pulse Ox Last 24 Hr 96.6 F-98.7 F 90-102 12-20 95-120/68-77 96-100 Result/EKG - Labs CBC & BMP: 02/20/17 03:59 02/20/17 03:59 Labs: Laboratory Results - last 24 hr 02/19/17 02/20/17 02/20/17 17:51 03:59 03:59 WBC 5.2 RBC 3.79 L Hgb 10.7 L Hct 32.8 L MCV 86.5 L MCH 28 MCHC 32.6 RDW 18.7 H Plt Count 173 MPV 12.2 H Neut % (Auto) 54.8 Lymph % (Auto) 33.0 Travis % (Auto) 8.7 Eos % (Auto) 2.5 Baso % (Auto) 0.6 Neut # (Auto) 2.8 Lymph # (Auto) 1.7 Travis # (Auto) 0.5 Eos # (Auto) 0.1 Baso # (Auto) 0.0 Immature Gran % 0.4 Nucleated RBC % 0.0 Immature Gran # 0.02 Nucleated RBCs # 0.00 Sodium 137 Potassium 3.8 Chloride 93 L Carbon Dioxide 32 Anion Gap 15.8 H BUN 19 H Creatinine 1.80 H GFR Calculation 59 BUN/Creatinine Ratio 10.00 Glucose 89 Calculated Osmolality 273.8 Calcium 9.2 Magnesium 1.9 Total Bilirubin 2.80 H AST 21 ALT 17 Alkaline Phosphatase 118 H Total Creatine Kinase 34 L D CK-MB (CK-2) < 1.0 Troponin I 0.054 H D B-Natriuretic Peptide Total Protein 6.3 L Albumin 3.4 Globulin 2.9 Albumin/Globulin Ratio 1.1 Triglycerides 63 Cholesterol 58 LDL Cholesterol 37.0 VLDL Cholesterol 12.6 HDL Cholesterol 18 L Heart Disease Risk Ratio 3.22 Urine Color Urine Appearance Urine pH Ur Specific Hydes Urine Protein Urine Glucose (UA) Urine Ketones Urine Blood Urine Nitrate Urine Bilirubin Urine Urobilinogen Urine Leukocytes Urine RBC Urine WBC Hyaline Casts Ur Culture Indicated? 02/20/17 02/20/17 02/20/17 03:59 03:59 11:36 WBC RBC Hgb Hct MCV MCH MCHC RDW Plt Count MPV Neut % (Auto) Lymph % (Auto) Travis % (Auto) Eos % (Auto) Baso % (Auto) Neut # (Auto) Lymph # (Auto) Travis # (Auto) Eos # (Auto) Baso # (Auto) Immature Gran % Nucleated RBC % Immature Gran # Nucleated RBCs # Sodium 137 Potassium 3.8 Chloride 93 L Carbon Dioxide 31 Anion Gap 16.8 H BUN 19 H Creatinine 1.80 H GFR Calculation 59 BUN/Creatinine Ratio 10.00 Glucose 86 Calculated Osmolality 273.8 Calcium 9.2 Magnesium 1.9 Total Bilirubin AST ALT Alkaline Phosphatase Total Creatine Kinase CK-MB (CK-2) Troponin I B-Natriuretic Peptide 3323 H Total Protein Albumin Globulin Albumin/Globulin Ratio Triglycerides Cholesterol LDL Cholesterol VLDL Cholesterol HDL Cholesterol Heart Disease Risk Ratio Urine Color Yellow Urine Appearance Clear Urine pH 8.0 Ur Specific Hydes 1.004 Urine Protein Negative Urine Glucose (UA) Negative Urine Ketones Negative Urine Blood Negative Urine Nitrate Negative Urine Bilirubin Negative Urine Urobilinogen 4.0 H Urine Leukocytes Negative Urine RBC 1 Urine WBC <1 Hyaline Casts 1 Ur Culture Indicated? Not indicated
[2017-02-20] MEDS: ATORVASTATIN 80 MG TABLET PO SCH (20:34)
[2017-02-20] MEDS: TAMSULOSIN 0.4 MG CAPSULE PO SCH (22:32)
[2017-02-21] MEDS: POTASSIUM CHLORIDE 20 MEQ TABLET PO SCH ×2 (10:27→21:15)
[2017-02-21] MEDS: ASPIRIN EC 81 MG TABLET PO SCH (10:27)
[2017-02-21] MEDS: GLUCOSAMINE 500 MG TABLET PO SCH (10:27)
[2017-02-21] MEDS: ALLOPURINOL 300 MG TABLET PO SCH (10:28)
[2017-02-21] MEDS: METOPROLOL SUCCINATE XL 25 MG TABLET PO SCH ×2 (10:28→21:16)
[2017-02-21] MEDS: ENOXAPARIN 40 MG/0.4 ML SYRINGE SUBCUT SCH (10:28)
[2017-02-21] MEDS: FAMOTIDINE 20 MG TABLET PO SCH ×2 (10:28→21:15)
[2017-02-21] MEDS: LISINOPRIL 5 MG TABLET PO SCH (10:28)
[2017-02-21] MEDS: CLOPIDOGREL 75 MG TABLET PO SCH (10:29)
[2017-02-21] MEDS: FUROSEMIDE 40 MG/4 ML VIAL IV SCH ×2 (10:29→15:44)
[2017-02-21 11:02] LABS: Calcium 9.4 MG/DL (8.5-10.1); Potassium 3.8 MMOL/L (3.5-5.1)
--- NOTE | 2017-02-21 11:10 | Cardiology Progress Note ---
<Sarah Foster E - Last Filed: 02/21/17 11:05> Assessment and Plan - Time spent with patient Time spent with patient: Less than 30 minutes (1) Acute on chronic heart failure Status: Acute Assessment and plan: SEE PLAN OF CARE LISTED BELOW. Current Visit: Yes Qualifiers: Heart failure type: combined Qualified Code(s): I50.43 - Acute on chronic combined systolic (congestive) and diastolic (congestive) heart failure (2) Edema, lower extremity Status: Acute Assessment and plan: SEE PLAN OF CARE LISTED BELOW. Current Visit: Yes (3) Chronic renal insufficiency Status: Chronic Assessment and plan: SEE PLAN OF CARE LISTED BELOW. Current Visit: Yes (4) Ischemic dilated cardiomyopathy Status: Chronic Assessment and plan: SEE PLAN OF CARE LISTED BELOW. Current Visit: No (5) S/P implantation of automatic cardioverter/defibrillator (AICD) Status: Chronic Assessment and plan: SEE PLAN OF CARE LISTED BELOW. Current Visit: No (6) Nonsustained ventricular tachycardia Status: Acute Assessment and plan: SEE PLAN OF CARE LISTED BELOW. Current Visit: Yes (7) Hypertension Status: Chronic Assessment and plan: SEE PLAN OF CARE LISTED BELOW. Current Visit: No (8) Dyslipidemia Status: Chronic Assessment and plan: SEE PLAN OF CARE LISTED BELOW. Current Visit: No Cardiology - PN: Subj Interval history: ALUM OPERATOR: DR. JOHNSON PCP: DR. PETERSON Mr. Rooln is a 46 y/o WM with a history of severe ischemic cardiomyopathy status post single-chamber AICD, coronary artery disease, dyslipidemia, hypertension, chronic renal insufficiency. He has a history of significant multivessel coronary artery disease that has been treated medically. He has had progressive lower extremity edema with shortness of breath and an increase in abdominal girth. His last weight in clinic on 12/22/16 was 210# which is now up to 220#. His echocardiogram on 02/19/17 reveals an EF of 10-15% with mild mitral regurgitation, mild tricuspid regurgitation, normal right sided pressures, and mildly dilated right ventricle, right atrium, and left atrium. He has had one episode of nonsustained ventricular tachycardia since admission. His potassium and magnesium are being replaced. Urology has seen him in consultation for feelings of incomplete bladder emptying. He has been started on Flomax for BPH and hilliard catheter has since been placed. Renal ultrasound revealed no evidence of abnormality. Potassium is 3.8 today. Creatinine 1.8 today. He continues to make slow improvements. BLE edema seems mildly improved from yesterday. He still has considerable abdominal distention. He reports his shortness of breath is improving. Dr. Dumas to follow with further plan and addendum. ASSESSMENT/PLAN: 1. ACUTE ON CHRONIC HEART FAILURE - Patient has had chronic LV dysfunction with EF 10-15%. He presented with primarily right heart failure with abdominal distention and peripheral edema. It is suspected that he has intestinal edema and has not been absorbing his lasix. Continue current plan of care. 2. LOWER EXTREMITY EDEMA - This has progressively worsened recently but is slowly improving with diuretic therapy. This is probably secondary to his acute on chronic combined heart failure. Continue current therapy with diuretics, isaura inhibitor, beta blockers. 3. CHRONIC RENAL INSUFFICIENCY - This is persistent with baseline creatinine around 1.6, up to 1.8. 4. ISCHEMIC DILATED CARDIOMYOPATHY - He has diffuse coronary artery disease but his cardiomyopathy is probably secondary to ischemia. His EF is 10-15% per echo 02/19/17. 5. S/P IMPLANTATION OF AICD - He has not received any shocks that he is aware of. He did have an episode of nonsustained ventricular tachycardia since admission. 6. NONSUSTAINED VT - This was demonstrated on the nurse monitoring yesterday morning. He has had no recurrent episodes since. We are repleting his potassium and magnesium. 7. HYPERTENSION - This is currently well controlled. We will continue to monitor and adjust medications as needed. He is on isaura inhibitor and beta mimi. Will continue to monitor renal function with ISAURA inhibitor present. 8. DYSLIPIDEMIA - Continue Lipitor. Exam (Progress Note) - Constitutional Vitals: Period Temp Pulse Resp BP Sys/Knight Pulse Ox Last 24 Hr 97.4 F-98.0 F 95-103 12-20 107-120/68-79 96-99 Exam: General: Present: Appears Well, No Apparent Distress. Pleasant and cooperative. Appears comfortable. HEENT: Present: PERRL, Normocephaly, atraumatic. Mucus Membranes Moist. No jaundice noted. Conjunctiva moist and clear, sclerae anicteric Neck: Present: Supple Neck, Midline Trachea, No Masses, No Bruit, No tenderness Cardiac: Present: Regular Rate and Rhythm, No Murmur Lungs: Present: Clear to auscultation bilaterally, no wheeze, rhonchi, rales. Neuro: Present: Awake, alert, and oriented x3. Moves all extremities well without hemiparesis or paralysis. Grossly Intact. Absent: Resting Tremor, Essential Tremor Abdomen: Present: Soft, Active Bowel Sounds, distended. No abdominal bruit or thrill noted. Skin: Present: Clear. Absent: Rash, No skin breakdown. Back: Normal inspection, no vertebral tenderness. Musculoskeletal: Present: No Fluid Collection, No Pain, Normal Range of Motion Extremities: Present: Normal Gait, No Clubbing, No Cyanosis, Upper Extr. Pulses 2+, Lower Extr. Pulses 2+, 1+ pitting edema to LLE, 2+ edema to RLE. Capillary refill less than 3 seconds. Result/EKG - Labs CBC & BMP: 02/20/17 03:59 02/21/17 10:20 Lab Results: I have reviewed the past 24 hour labs Labs: Laboratory Results - last 24 hr 02/20/17 02/21/17 11:36 10:20 Sodium 136 Potassium 3.8 Chloride 95 L Carbon Dioxide 33 H Anion Gap 11.8 BUN 21 H Creatinine 1.80 H GFR Calculation 59 BUN/Creatinine Ratio 11.00 Glucose 103 Calculated Osmolality 274.0 Calcium 9.4 Urine Color Yellow Urine Appearance Clear Urine pH 8.0 Ur Specific [place] 1.004 Urine Protein Negative Urine Glucose (UA) Negative Urine Ketones Negative Urine Blood Negative Urine Nitrate Negative Urine Bilirubin Negative Urine Urobilinogen 4.0 H Urine Leukocytes Negative Urine RBC 1 Urine WBC <1 Hyaline Casts 1 Ur Culture Indicated? Not indicated - EKG EKG results: interpreted by me, sinus rhythm <Teto Dumas - Last Filed: 02/21/17 15:55> Cardiology - PN: Subj Interval history: We are going to continue his IV diuresis is presently. If his abdominal issues do not start to improve we can try him on some dobutamine to see if we can improve clearance of his volume. Exam (Progress Note) - Constitutional Vitals: Period Temp Pulse Resp BP Sys/Knight Pulse Ox Last 24 Hr 97.4 F-98.0 F 95-103 16-20 105-113/74-79 96-99 Result/EKG - Labs CBC & BMP: 02/20/17 03:59 02/21/17 10:20 Labs: Laboratory Results - last 24 hr 02/21/17 10:20 Sodium 136 Potassium 3.8 Chloride 95 L Carbon Dioxide 33 H Anion Gap 11.8 BUN 21 H Creatinine 1.80 H GFR Calculation 59 BUN/Creatinine Ratio 11.00 Glucose 103 Calculated Osmolality 274.0 Calcium 9.4
--- NOTE | 2017-02-21 13:35 | Hospitalist Progress Note ---
Assessment and Plan (1) Congestive heart failure Status: Chronic Assessment and plan: 1)lower extremity edema- Dr Barrera suspects more right than left sided heart failure as he has no pulmonary edema or increased shortness of breath. diuresing with IV lasix as intestinal edema would impair absorption of lasix. 2)CKD- creatinine 1.8- baseline 1.6 3)dilated cardiomyopathy- EF 10% severe systolic dysfunction. 4)AICD 5)NSVT- replaced electrolytes- no more episodes. Current Visit: Yes (2) Hypertension Status: Chronic Current Visit: No (3) Ischemic dilated cardiomyopathy Status: Chronic Current Visit: No (4) Status post implantation of automatic cardioverter/defibrillator (AICD) Status: Acute Current Visit: No (5) Chronic kidney disease Status: Acute Current Visit: Yes Qualifiers: Chronic kidney disease stage: stage 2 (mild) Qualified Code(s): N18.2 - Chronic kidney disease, stage 2 (mild) (6) Urinary retention Status: Acute Current Visit: Yes Hospitalist: Subjective Interval history: Mr Rolon is feeling a little better. There is no change to his abdominal fullness but his lower extremity edema has improved a bit since yesterday. He asks when he can go home. No shortness of breath. NO pain. hilliard draining. Exam - Constitutional Vitals: Period Temp Pulse Resp BP Sys/Knight Pulse Ox Last 24 Hr 97.4 F-98.0 F 95-103 16-20 105-113/74-79 96-99 General appearance: normal weight, no acute distress - Eye Eye exam: Present: EOMI. Absent: scleral icterus - Respiratory Respiratory exam: Present: clear to auscultation bilaterally - Cardiovascular Cardiovascular exam: Present: regular rate and rhythm - GI/Abdominal GI/Abdominal exam: Present: normal bowel sounds, distended, soft. Absent: tenderness - Extremities Exam Extremities exam: Present: edema (in lower extremities 2+) - Neurological Exam Neurological exam: Present: alert - Skin Skin exam: Present: warm, dry Results - Labs CBC & BMP: 02/20/17 03:59 02/21/17 10:20 Lab Results: I have reviewed the past 24 hour labs
[2017-02-21] MEDS: TAMSULOSIN 0.4 MG CAPSULE PO SCH (21:15)
[2017-02-21] MEDS: ATORVASTATIN 80 MG TABLET PO SCH (21:15)
[2017-02-22 06:32] LABS: Calcium 9.2 MG/DL (8.5-10.1); Calcium 9.4 MG/DL (8.5-10.1); Osmolality,Calculated 271.1 MOS/KG (273-304)
[2017-02-22] MEDS: ENOXAPARIN 40 MG/0.4 ML SYRINGE SUBCUT SCH (08:34)
[2017-02-22] MEDS: METOPROLOL SUCCINATE XL 25 MG TABLET PO SCH ×2 (08:34→20:51)
[2017-02-22] MEDS: ASPIRIN EC 81 MG TABLET PO SCH (08:34)
[2017-02-22] MEDS: ALLOPURINOL 300 MG TABLET PO SCH (08:35)
[2017-02-22] MEDS: GLUCOSAMINE 500 MG TABLET PO SCH (08:35)
[2017-02-22] MEDS: FAMOTIDINE 20 MG TABLET PO SCH ×2 (08:35→20:52)
[2017-02-22] MEDS: FUROSEMIDE 40 MG/4 ML VIAL IV SCH ×2 (08:35→17:02)
[2017-02-22] MEDS: POTASSIUM CHLORIDE 20 MEQ TABLET PO SCH ×2 (08:35→20:51)
[2017-02-22] MEDS: CLOPIDOGREL 75 MG TABLET PO SCH (08:35)
[2017-02-22] MEDS: LISINOPRIL 5 MG TABLET PO SCH (08:37)
--- NOTE | 2017-02-22 11:34 | Hospitalist Progress Note ---
Assessment and Plan (1) Congestive heart failure Status: Chronic Assessment and plan: 1)abdominal and lower extremity edema- Dr Barrera suspects more right than left sided heart failure as he has no pulmonary edema or increased shortness of breath. diuresing with IV lasix as intestinal edema would impair absorption of lasix. EF is 10-15%. Diuresing slowly, Dr Dumas considering Dobutamine. 2)CKD- creatinine 1.7- baseline 1.6 3)dilated cardiomyopathy- EF 10% severe systolic dysfunction. 4)AICD 5)NSVT- replaced electrolytes- no more episodes. Current Visit: Yes (2) Hypertension Status: Chronic Current Visit: No (3) Ischemic dilated cardiomyopathy Status: Chronic Current Visit: No (4) Status post implantation of automatic cardioverter/defibrillator (AICD) Status: Acute Current Visit: No (5) Chronic kidney disease Status: Acute Current Visit: Yes Qualifiers: Chronic kidney disease stage: stage 2 (mild) Qualified Code(s): N18.2 - Chronic kidney disease, stage 2 (mild) (6) Urinary retention Status: Acute Current Visit: Yes Hospitalist: Subjective Interval history: Mr Rolon says he feels a little better each day. Denies shortness of breath. Abdomen remains distended about the same but his legs are less edematous. He is not much negative in his I and O, and his weight is basically unchanged. He has not had Dobutamine in the past. Exam - Constitutional Vitals: Period Temp Pulse Resp BP Sys/Knight Pulse Ox Last 24 Hr 96.4 F-98.7 F 91-100 18-20 109-119/73-86 96-99 General appearance: normal weight, no acute distress - Eye Eye exam: Present: EOMI. Absent: scleral icterus - Respiratory Respiratory exam: Present: clear to auscultation bilaterally - Cardiovascular Cardiovascular exam: Present: regular rate and rhythm - GI/Abdominal GI/Abdominal exam: Present: normal bowel sounds, distended, soft - Extremities Exam Extremities exam: Present: edema - Neurological Exam Neurological exam: Present: alert, oriented X3 Results - Labs CBC & BMP: 02/20/17 03:59 02/22/17 05:15 Lab Results: I have reviewed the past 24 hour labs
--- NOTE | 2017-02-22 16:33 | Cardiology Progress Note ---
Assessment and Plan - Time spent with patient Time spent with patient: Less than 30 minutes (1) Acute on chronic heart failure Status: Acute Assessment and plan: SEE PLAN OF CARE LISTED BELOW. Current Visit: Yes Qualifiers: Heart failure type: combined Qualified Code(s): I50.43 - Acute on chronic combined systolic (congestive) and diastolic (congestive) heart failure (2) Edema, lower extremity Status: Acute Assessment and plan: SEE PLAN OF CARE LISTED BELOW. Current Visit: Yes (3) Chronic renal insufficiency Status: Chronic Assessment and plan: SEE PLAN OF CARE LISTED BELOW. Current Visit: Yes (4) Ischemic dilated cardiomyopathy Status: Chronic Assessment and plan: SEE PLAN OF CARE LISTED BELOW. Current Visit: No (5) S/P implantation of automatic cardioverter/defibrillator (AICD) Status: Chronic Assessment and plan: SEE PLAN OF CARE LISTED BELOW. Current Visit: No (6) Nonsustained ventricular tachycardia Status: Acute Assessment and plan: SEE PLAN OF CARE LISTED BELOW. Current Visit: Yes (7) Hypertension Status: Chronic Assessment and plan: SEE PLAN OF CARE LISTED BELOW. Current Visit: No (8) Dyslipidemia Status: Chronic Assessment and plan: SEE PLAN OF CARE LISTED BELOW. Current Visit: No Cardiology - PN: Subj Interval history: ENGINEERING JOB TITLES: DR. JOHNSON PCP: DR. PETERSON Mr. Rolon is a 46 y/o WM with a history of severe ischemic cardiomyopathy status post single-chamber AICD, coronary artery disease, dyslipidemia, hypertension, chronic renal insufficiency. He has a history of significant multivessel coronary artery disease that has been treated medically. He has had progressive lower extremity edema with shortness of breath and an increase in abdominal girth. His last weight in clinic on 12/22/16 was 210# which is now up to 220#. His echocardiogram on 02/19/17 reveals an EF of 10-15% with mild mitral regurgitation, mild tricuspid regurgitation, normal right sided pressures, and mildly dilated right ventricle, right atrium, and left atrium. He has had one episode of nonsustained ventricular tachycardia since admission. His potassium and magnesium are being replaced. Urology has seen him in consultation for feelings of incomplete bladder emptying. He has been started on Flomax for BPH and hilliard catheter has since been placed. Renal ultrasound revealed no evidence of abnormality. Potassium is 4.0. Creatinine 1.7. He continues to make slow improvements. BLE continues to improve. He still has considerable abdominal distention. He reports his shortness of breath is improving. Dr. Dumas to follow with further plan and addendum. ASSESSMENT/PLAN: 1. ACUTE ON CHRONIC HEART FAILURE - Patient has had chronic LV dysfunction with EF 10-15%. He presented with primarily right heart failure with abdominal distention and peripheral edema. It is suspected that he has intestinal edema and has not been absorbing his lasix. We will start him on IV Dobutamine to see if we can improve clearance of his volume. 2. LOWER EXTREMITY EDEMA - This has progressively worsened recently but is slowly improving with diuretic therapy. This is probably secondary to his acute on chronic combined heart failure. Continue current therapy with diuretics, isaura inhibitor, beta blockers. We will add Dobutamine. 3. CHRONIC RENAL INSUFFICIENCY - This is persistent with baseline creatinine around 1.6, now 1.7. 4. ISCHEMIC DILATED CARDIOMYOPATHY - He has diffuse coronary artery disease but his cardiomyopathy is probably secondary to ischemia. His EF is 10-15% per echo 02/19/17. 5. S/P IMPLANTATION OF AICD - He has not received any shocks that he is aware of. He did have an episode of nonsustained ventricular tachycardia since admission but has not had recurrent episodes of dysrhythmias. 6. NONSUSTAINED VT - This was demonstrated on the implementation analyst shortly after admission. He has had no recurrent episodes since. We are repleting his potassium and magnesium. 7. HYPERTENSION - This is currently well controlled. We will continue to monitor and adjust medications as needed. He is on isaura inhibitor and beta mimi. Will continue to monitor renal function with ISAURA inhibitor present. 8. DYSLIPIDEMIA - Continue Lipitor. Exam (Progress Note) - Constitutional Vitals: Period Temp Pulse Resp BP Sys/Knight Pulse Ox Last 24 Hr 96.4 F-98.7 F 91-100 18-20 105-119/71-86 96-99 Exam: General: Present: Appears Well, No Apparent Distress. Pleasant and cooperative. Appears comfortable. HEENT: Present: PERRL, Normocephaly, atraumatic. Mucus Membranes Moist. No jaundice noted. Conjunctiva moist and clear, sclerae anicteric Neck: Present: Supple Neck, Midline Trachea, No Masses, No Bruit, No tenderness Cardiac: Present: Regular Rate and Rhythm, No Murmur Lungs: Present: Clear to auscultation bilaterally, no wheeze, rhonchi, rales. Neuro: Present: Awake, alert, and oriented x3. Moves all extremities well without hemiparesis or paralysis. Grossly Intact. Absent: Resting Tremor, Essential Tremor Abdomen: Present: Soft, Active Bowel Sounds, distended. No abdominal bruit or thrill noted. Skin: Present: Clear. Absent: Rash, No skin breakdown. Back: Normal inspection, no vertebral tenderness. Musculoskeletal: Present: No Fluid Collection, No Pain, Normal Range of Motion Extremities: Present: Normal Gait, No Clubbing, No Cyanosis, Upper Extr. Pulses 2+, Lower Extr. Pulses 2+, trace-1+ pitting edema to LLE, 1-2+ edema to RLE. Capillary refill less than 3 seconds. Result/EKG - Labs CBC & BMP: 02/20/17 03:59 02/22/17 05:15 Lab Results: I have reviewed the past 24 hour labs Labs: Laboratory Results - last 24 hr 02/22/17 02/22/17 02/22/17 05:15 05:15 05:15 Sodium 135 L Potassium 4.0 Chloride 94 L Carbon Dioxide 30 Anion Gap 15.0 BUN 22 H Creatinine 1.70 H GFR Calculation 63 BUN/Creatinine Ratio 12.00 Glucose 81 Calculated Osmolality 271.1 L Calcium 9.2 Magnesium 1.9 2.0 B-Natriuretic Peptide 3294 H 02/22/17 05:15 Sodium 135 L Potassium 4.0 Chloride 95 L Carbon Dioxide 29 Anion Gap 15.0 BUN 22 H Creatinine 1.70 H GFR Calculation 63 BUN/Creatinine Ratio 12.00 Glucose 83 Calculated Osmolality 271.1 L Calcium 9.4 Magnesium B-Natriuretic Peptide - EKG EKG results: interpreted by me, sinus rhythm
[2017-02-22] MEDS: DOBUTamine 500 MG/250 ML PREMIX IV SCH (17:03)
[2017-02-22] MEDS: TAMSULOSIN 0.4 MG CAPSULE PO SCH (20:52)
[2017-02-22] MEDS: ATORVASTATIN 80 MG TABLET PO SCH (20:52)
[2017-02-23] MEDS: DOBUTamine 500 MG/250 ML PREMIX IV SCH ×2 (03:53→15:07)
[2017-02-23 05:34] LABS: Basophils # 0.1 10*3/uL (0.0-0.2); Basophils % 0.9 % (0.0-0.8); Eosinophils # 0.1 10*3/uL (0.0-0.87); Eosinophils % 1.3 % (0.00-10.9); Hematocrit 32.9 VOL% (42.0-52.0); Immature Granulocytes % 0.4 %; Immature Granulocytes Absolute 0.02 #; Lymphocytes # 1.5 10*3/uL (1.4-4.0); Lymphocytes % 27.9 % (21.2-54.2); Mean Corpuscular HGB Conc 33.4 GM/DL (32-36); Mean Corpuscular Hemoglobin 29 PG (27-34); Mean Corpuscular Volume 86.1 FL (87-102); Mean Platelet Volume 11.6 FL (9.6-12.0); Monocytes # 0.4 10*3/uL (0.11-0.8); Monocytes % 8.3 % (1.7-12.7); Neutrophils # 3.2 10*3/uL (1.4-7.4); Neutrophils % 61.2 % (38.7-73.9); Platelet Count 170 T/CUMM (130-400); Red Blood Count 3.82 MC/CUMM (3.8-5.5); Red Cell Distribution Width 18.7 % (9.3-17.3); White Blood Count 5.3 T/CUMM (4-12)
[2017-02-23 06:02] LABS: Calcium 9.5 MG/DL (8.5-10.1); Potassium 3.7 MMOL/L (3.5-5.1)
[2017-02-23] MEDS: ENOXAPARIN 40 MG/0.4 ML SYRINGE SUBCUT SCH (08:49)
[2017-02-23] MEDS: FUROSEMIDE 40 MG/4 ML VIAL IV SCH ×2 (08:50→16:29)
[2017-02-23] MEDS: POTASSIUM CHLORIDE 20 MEQ TABLET PO SCH ×2 (08:50→20:44)
[2017-02-23] MEDS: ALLOPURINOL 300 MG TABLET PO SCH (08:50)
[2017-02-23] MEDS: METOPROLOL SUCCINATE XL 25 MG TABLET PO SCH ×2 (08:50→20:44)
[2017-02-23] MEDS: ASPIRIN EC 81 MG TABLET PO SCH (08:50)
[2017-02-23] MEDS: CLOPIDOGREL 75 MG TABLET PO SCH (08:51)
[2017-02-23] MEDS: GLUCOSAMINE 500 MG TABLET PO SCH (08:51)
[2017-02-23] MEDS: FAMOTIDINE 20 MG TABLET PO SCH ×2 (08:51→20:46)
[2017-02-23] MEDS: LISINOPRIL 5 MG TABLET PO SCH (08:51)
--- NOTE | 2017-02-23 09:44 | Hospitalist Progress Note ---
Assessment and Plan - Time spent with patient Time spent with patient: Less than 30 minutes (1) Nonsustained ventricular tachycardia Status: Acute Assessment and plan: Mr. Madsen is a 46-year-old white male admitted with congestive heart failure and abdominal and lower extremity edema. He is feeling much better. He is being followed by cardiology. Dr. Fair to see and examined patient and further recommendations to follow. Abdominal and lower extremity edema--this is more right than left-sided heart failure because he has no pulmonary edema or shortness of breath. He is diuresing with IV Lasix and dobutamine has been started. He is having a lot of urine output in his ankles only have some mild edema. This is much improved Chronic kidney disease--patient is back at his baseline. Continue to monitor due to Lasix usage Dilated cardiomyopathy--patient has an EF of 10% with severe systolic dysfunction. Cardiology is following AICD Nonsustained V. tach--electrolytes have been replaced and they are fine. He has had no more episodes. Continue to monitor. Current Visit: Yes (2) Congestive heart failure Status: Chronic Current Visit: Yes (3) Hypertension Status: Chronic Current Visit: No (4) Ischemic dilated cardiomyopathy Status: Chronic Current Visit: No (5) S/P implantation of automatic cardioverter/defibrillator (AICD) Status: Chronic Current Visit: No (6) Chronic kidney disease Status: Acute Current Visit: Yes Qualifiers: Chronic kidney disease stage: stage 2 (mild) Qualified Code(s): N18.2 - Chronic kidney disease, stage 2 (mild) Hospitalist: Subjective Interval history: Patient looks and feels a lot better today. He is eating well and he has a lot of urine output. Exam - Constitutional Vitals: Period Temp Pulse Resp BP Sys/Knight Pulse Ox Last 24 Hr 97.1 F-98.1 F 94-111 16-18 105-121/67-78 96-102 Exam: 46-year-old white male, no acute distress Chest clear CV regular rate and rhythm Abdomen soft nontender Extremities with mild bilateral pedal edema Results - Labs CBC & BMP: 02/23/17 04:29 02/23/17 04:29 Lab Results: I have reviewed the past 24 hour labs
--- NOTE | 2017-02-23 11:54 | Cardiology Progress Note ---
<Sarah Foster E - Last Filed: 02/23/17 11:47> Assessment and Plan - Time spent with patient Time spent with patient: Less than 30 minutes (1) Acute on chronic heart failure Status: Acute Assessment and plan: SEE PLAN OF CARE LISTED BELOW. Current Visit: Yes Qualifiers: Heart failure type: combined Qualified Code(s): I50.43 - Acute on chronic combined systolic (congestive) and diastolic (congestive) heart failure (2) Edema, lower extremity Status: Acute Assessment and plan: SEE PLAN OF CARE LISTED BELOW. Current Visit: Yes (3) Chronic renal insufficiency Status: Chronic Assessment and plan: SEE PLAN OF CARE LISTED BELOW. Current Visit: Yes (4) Ischemic dilated cardiomyopathy Status: Chronic Assessment and plan: SEE PLAN OF CARE LISTED BELOW. Current Visit: No (5) S/P implantation of automatic cardioverter/defibrillator (AICD) Status: Chronic Assessment and plan: SEE PLAN OF CARE LISTED BELOW. Current Visit: No (6) Nonsustained ventricular tachycardia Status: Acute Assessment and plan: SEE PLAN OF CARE LISTED BELOW. Current Visit: Yes (7) Hypertension Status: Chronic Assessment and plan: SEE PLAN OF CARE LISTED BELOW. Current Visit: No (8) Dyslipidemia Status: Chronic Assessment and plan: SEE PLAN OF CARE LISTED BELOW. Current Visit: No Cardiology - PN: Subj Interval history: MARINE MAMMAL TRAINER: DR. JOHNSON PCP: DR. PETERSON Mr. Rolon is a 46 y/o WM with a history of severe ischemic cardiomyopathy status post single-chamber AICD, coronary artery disease, dyslipidemia, hypertension, chronic renal insufficiency. He has a history of significant multivessel coronary artery disease that has been treated medically. He has had progressive lower extremity edema with shortness of breath and an increase in abdominal girth. His last weight in clinic on 12/22/16 was 210# which is now up to 220#. His echocardiogram on 02/19/17 reveals an EF of 10-15% with mild mitral regurgitation, mild tricuspid regurgitation, normal right sided pressures, and mildly dilated right ventricle, right atrium, and left atrium. He has had one episode of nonsustained ventricular tachycardia since admission. His potassium and magnesium are being replaced. Urology has seen him in consultation for feelings of incomplete bladder emptying. He has been started on Flomax for BPH and hilliard catheter has since been placed. Renal ultrasound revealed no evidence of abnormality. Mr. Rolon looks much improved today. We started him on Dobutamine yesterday and since that time, he has had a negative output of over 3 liters. His abdominal distention has improved considerably. His legs remain slightly edematous, but he reports he feels better today than he has in months. He relates this worsening of his CHF with beginning to ride a cutter daily at work with a seatbelt that cut into his lower abdomen and his legs being down all day and going down the side of a steep hill repeatedly. Creatinine has improved to 1.6, back to his baseline. Electrolytes are stable. Will continue to follow labs. Dr. Dumas to follow with further plan and addendum. ASSESSMENT/PLAN: 1. ACUTE ON CHRONIC HEART FAILURE - Patient has had chronic LV dysfunction with EF 10-15%. He presented with primarily right heart failure with abdominal distention and peripheral edema. It is suspected that he has intestinal edema and has not been absorbing his lasix. We started him on Dobutamine 02/22/17 and he has done well with this. We will continue this for now to see if we can further improve his condition. 2. LOWER EXTREMITY EDEMA - This has progressively worsened recently but is slowly improving with diuretic therapy. This is probably secondary to his acute on chronic combined heart failure. Continue current therapy with diuretics, isaura inhibitor, beta blockers. Continue Dobutamine. 3. CHRONIC RENAL INSUFFICIENCY - Creatinine now at baseline of 1.6. 4. ISCHEMIC DILATED CARDIOMYOPATHY - He has diffuse coronary artery disease but his cardiomyopathy is probably secondary to ischemia. His EF is 10-15% per echo 02/19/17. 5. S/P IMPLANTATION OF AICD - He has not received any shocks that he is aware of. He did have an episode of nonsustained ventricular tachycardia since admission but has not had recurrent episodes of dysrhythmias. 6. NONSUSTAINED VT - This was demonstrated on the video control engineer shortly after admission. He has had no recurrent episodes since. We are repleting his potassium and magnesium. 7. HYPERTENSION - This is currently well controlled. We will continue to monitor and adjust medications as needed. He is on isaura inhibitor and beta mimi. Will continue to monitor renal function with ISAURA inhibitor present. 8. DYSLIPIDEMIA - Continue Lipitor. Exam (Progress Note) - Constitutional Vitals: Period Temp Pulse Resp BP Sys/Knight Pulse Ox Last 24 Hr 97.1 F-98.1 F 94-111 16-18 105-121/67-78 96-102 Exam: General: Present: Appears Well, No Apparent Distress. Pleasant and cooperative. Appears comfortable. HEENT: Present: PERRL, Normocephaly, atraumatic. Mucus Membranes Moist. No jaundice noted. Conjunctiva moist and clear, sclerae anicteric Neck: Present: Supple Neck, Midline Trachea, No Masses, No Bruit, No tenderness Cardiac: Present: Regular Rate and Rhythm, No Murmur Lungs: Present: Clear to auscultation bilaterally, no wheeze, rhonchi, rales. Neuro: Present: Awake, alert, and oriented x3. Moves all extremities well without hemiparesis or paralysis. Grossly Intact. Absent: Resting Tremor, Essential Tremor Abdomen: Present: Soft, Active Bowel Sounds, remains distended but overall much improved. No abdominal bruit or thrill noted. Skin: Present: Clear. Absent: Rash, No skin breakdown. Back: Normal inspection, no vertebral tenderness. Musculoskeletal: Present: No Fluid Collection, No Pain, Normal Range of Motion Extremities: Present: Normal Gait, No Clubbing, No Cyanosis, Upper Extr. Pulses 2+, Lower Extr. Pulses 2+, trace-1+ pitting edema to LLE, 1-2+ edema to RLE. Capillary refill less than 3 seconds. Result/EKG - Labs CBC & BMP: 02/23/17 04:29 02/23/17 04:29 Lab Results: I have reviewed the past 24 hour labs Labs: Laboratory Results - last 24 hr 02/23/17 02/23/17 04:29 04:29 WBC 5.3 RBC 3.82 Hgb 11.0 L Hct 32.9 L MCV 86.1 L MCH 29 MCHC 33.4 RDW 18.7 H Plt Count 170 MPV 11.6 Neut % (Auto) 61.2 Lymph % (Auto) 27.9 Williamson % (Auto) 8.3 Eos % (Auto) 1.3 Baso % (Auto) 0.9 H Neut # (Auto) 3.2 Lymph # (Auto) 1.5 Williamson # (Auto) 0.4 Eos # (Auto) 0.1 Baso # (Auto) 0.1 Immature Gran % 0.4 Nucleated RBC % 0.0 Immature Gran # 0.02 Nucleated RBCs # 0.00 Sodium 136 Potassium 3.7 Chloride 96 L Carbon Dioxide 31 Anion Gap 12.7 BUN 19 H Creatinine 1.60 H GFR Calculation 67 BUN/Creatinine Ratio 11.00 Glucose 89 Calculated Osmolality 272.0 L Calcium 9.5 - EKG EKG results: interpreted by me, sinus rhythm <Teto Dumas - Last Filed: 02/23/17 16:42> Cardiology - PN: Subj Interval history: He is much improved on intravenous dobutamine and feels better. He is diuresing well will start to taper his dobutamine tomorrow and then maybe try to get him home in 48 hours or so. He is overall improving and hopefully this will continue. Exam (Progress Note) - Constitutional Vitals: Period Temp Pulse Resp BP Sys/Knight Pulse Ox Last 24 Hr 97.1 F-98.1 F 92-111 16-20 108-121/69-78 96-102 Result/EKG - Labs CBC & BMP: 02/23/17 04:29 02/23/17 04:29 Labs: Laboratory Results - last 24 hr 02/23/17 02/23/17 04:29 04:29 WBC 5.3 RBC 3.82 Hgb 11.0 L Hct 32.9 L MCV 86.1 L MCH 29 MCHC 33.4 RDW 18.7 H Plt Count 170 MPV 11.6 Neut % (Auto) 61.2 Lymph % (Auto) 27.9 Williamson % (Auto) 8.3 Eos % (Auto) 1.3 Baso % (Auto) 0.9 H Neut # (Auto) 3.2 Lymph # (Auto) 1.5 Williamson # (Auto) 0.4 Eos # (Auto) 0.1 Baso # (Auto) 0.1 Immature Gran % 0.4 Nucleated RBC % 0.0 Immature Gran # 0.02 Nucleated RBCs # 0.00 Sodium 136 Potassium 3.7 Chloride 96 L Carbon Dioxide 31 Anion Gap 12.7 BUN 19 H Creatinine 1.60 H GFR Calculation 67 BUN/Creatinine Ratio 11.00 Glucose 89 Calculated Osmolality 272.0 L Calcium 9.5
[2017-02-23] MEDS: TAMSULOSIN 0.4 MG CAPSULE PO SCH (20:44)
[2017-02-23] MEDS: ATORVASTATIN 80 MG TABLET PO SCH (20:44)
[2017-02-24] MEDS: DOBUTamine 500 MG/250 ML PREMIX IV SCH ×5 (01:38→14:52)
[2017-02-24] MEDS: GLUCOSAMINE 500 MG TABLET PO SCH (08:41)
[2017-02-24] MEDS: FUROSEMIDE 40 MG/4 ML VIAL IV SCH ×2 (08:41→15:51)
[2017-02-24] MEDS: ENOXAPARIN 40 MG/0.4 ML SYRINGE SUBCUT SCH (08:41)
[2017-02-24] MEDS: ASPIRIN EC 81 MG TABLET PO SCH (08:41)
[2017-02-24] MEDS: FAMOTIDINE 20 MG TABLET PO SCH ×2 (08:41→21:22)
[2017-02-24] MEDS: METOPROLOL SUCCINATE XL 25 MG TABLET PO SCH ×2 (08:42→21:22)
[2017-02-24] MEDS: CLOPIDOGREL 75 MG TABLET PO SCH (08:42)
[2017-02-24] MEDS: LISINOPRIL 5 MG TABLET PO SCH (08:42)
[2017-02-24] MEDS: POTASSIUM CHLORIDE 20 MEQ TABLET PO SCH ×2 (08:42→21:23)
[2017-02-24] MEDS: ALLOPURINOL 300 MG TABLET PO SCH (08:42)
--- NOTE | 2017-02-24 13:19 | Cardiology Progress Note ---
Assessment and Plan - Time spent with patient Time spent with patient: Less than 30 minutes (1) Acute on chronic heart failure Status: Acute Assessment and plan: SEE PLAN OF CARE LISTED BELOW. Current Visit: Yes Qualifiers: Heart failure type: combined Qualified Code(s): I50.43 - Acute on chronic combined systolic (congestive) and diastolic (congestive) heart failure (2) Edema, lower extremity Status: Acute Assessment and plan: SEE PLAN OF CARE LISTED BELOW. Current Visit: Yes (3) Chronic renal insufficiency Status: Chronic Assessment and plan: SEE PLAN OF CARE LISTED BELOW. Current Visit: Yes (4) Ischemic dilated cardiomyopathy Status: Chronic Assessment and plan: SEE PLAN OF CARE LISTED BELOW. Current Visit: No (5) S/P implantation of automatic cardioverter/defibrillator (AICD) Status: Chronic Assessment and plan: SEE PLAN OF CARE LISTED BELOW. Current Visit: No (6) Nonsustained ventricular tachycardia Status: Acute Assessment and plan: SEE PLAN OF CARE LISTED BELOW. Current Visit: Yes (7) Hypertension Status: Chronic Assessment and plan: SEE PLAN OF CARE LISTED BELOW. Current Visit: No (8) Dyslipidemia Status: Chronic Assessment and plan: SEE PLAN OF CARE LISTED BELOW. Current Visit: No Cardiology - PN: Subj Interval history: REC THERAPIST: DR. JOHNSON PCP: DR. PETERSON Mr. Rolon is a 46 y/o WM with a history of severe ischemic cardiomyopathy status post single-chamber AICD, coronary artery disease, dyslipidemia, hypertension, chronic renal insufficiency. He has a history of significant multivessel coronary artery disease that has been treated medically. He has had progressive lower extremity edema with shortness of breath and an increase in abdominal girth. His last weight in clinic on 12/22/16 was 210# which is now up to 220#. His echocardiogram on 02/19/17 reveals an EF of 10-15% with mild mitral regurgitation, mild tricuspid regurgitation, normal right sided pressures, and mildly dilated right ventricle, right atrium, and left atrium. He has had one episode of nonsustained ventricular tachycardia since admission. His potassium and magnesium are being replaced. Urology has seen him in consultation for feelings of incomplete bladder emptying. He has been started on Flomax for BPH and hilliard catheter has since been placed. Renal ultrasound revealed no evidence of abnormality. Mr. Rolon continues to make improvements. He has been on Dobutamine and we are now weaning him off. He has lost 20# since admission and is cumulatively negative approximately 10 liters. His abdominal distention continues to improve. His BLE edema has improved significantly. Hopefully we can wean him off the Dobutamine today and plan for discharge possibly tomorrow. Dr. Dumas to follow with further plan and addendum. ASSESSMENT/PLAN: 1. ACUTE ON CHRONIC HEART FAILURE - Patient has had chronic LV dysfunction with EF 10-15%. He presented with primarily right heart failure with abdominal distention and peripheral edema. It is suspected that he has intestinal edema and has not been absorbing his lasix. We started him on Dobutamine 02/22/17 and he has done well with this. He has lost 20# since admission and is much improved. We are now weaning him off the dobutamine. 2. LOWER EXTREMITY EDEMA - This has progressively worsened recently but is slowly improving with diuretic therapy. This is probably secondary to his acute on chronic combined heart failure. Continue current therapy with diuretics, isaura inhibitor, beta blockers. Wean dobutamine. 3. CHRONIC RENAL INSUFFICIENCY - Creatinine now at baseline of 1.6. 4. ISCHEMIC DILATED CARDIOMYOPATHY - He has diffuse coronary artery disease but his cardiomyopathy is probably secondary to ischemia. His EF is 10-15% per echo 02/19/17. 5. S/P IMPLANTATION OF AICD - He has not received any shocks that he is aware of. He did have an episode of nonsustained ventricular tachycardia since admission but has not had recurrent episodes of dysrhythmias. 6. NONSUSTAINED VT - This was demonstrated on the school lunch monitor shortly after admission. He has had no recurrent episodes since. We are repleting his potassium and magnesium. 7. HYPERTENSION - This is currently well controlled. We will continue to monitor and adjust medications as needed. He is on isaura inhibitor and beta mimi. Will continue to monitor renal function with ISAURA inhibitor present. 8. DYSLIPIDEMIA - Continue Lipitor. Exam (Progress Note) - Constitutional Vitals: Period Temp Pulse Resp BP Sys/Knight Pulse Ox Last 24 Hr 97.4 F-97.9 F 99-111 16-20 110-124/71-78 97-100 Exam: General: Present: Appears Well, No Apparent Distress. Pleasant and cooperative. Appears comfortable. HEENT: Present: PERRL, Normocephaly, atraumatic. Mucus Membranes Moist. No jaundice noted. Conjunctiva moist and clear, sclerae anicteric Neck: Present: Supple Neck, Midline Trachea, No Masses, No Bruit, No tenderness Cardiac: Present: Regular Rate and Rhythm, No Murmur Lungs: Present: Clear to auscultation bilaterally, no wheeze, rhonchi, rales. Neuro: Present: Awake, alert, and oriented x3. Moves all extremities well without hemiparesis or paralysis. Grossly Intact. Absent: Resting Tremor, Essential Tremor Abdomen: Present: Soft, Active Bowel Sounds, remains mildly distended but overall much improved. No abdominal bruit or thrill noted. Skin: Present: Clear. Absent: Rash, No skin breakdown. Back: Normal inspection, no vertebral tenderness. Musculoskeletal: Present: No Fluid Collection, No Pain, Normal Range of Motion Extremities: Present: Normal Gait, No Clubbing, No Cyanosis, Upper Extr. Pulses 2+, Lower Extr. Pulses 2+, trace-1+ pitting edema to LLE, trace edema to RLE. Capillary refill less than 3 seconds. Result/EKG - Labs CBC & BMP: 02/23/17 04:29 02/23/17 04:29 Lab Results: I have reviewed the past 24 hour labs - EKG EKG results: interpreted by me, sinus rhythm
--- NOTE | 2017-02-24 13:26 | Hospitalist Progress Note ---
Assessment and Plan (1) Congestive heart failure Status: Chronic Assessment and plan: 1)abdominal and lower extremity edema- right heart failure as he has no pulmonary edema or increased shortness of breath. diuresing with IV lasix as intestinal edema would impair absorption of lasix. EF is 10-15%. he has responded to Dobutamine dramatically. THey are tapering it off now, anticipate dc in am on oral lasix. he should be instructed about increasing his dose for weight gain. 2)CKD- creatinine 1.7- baseline 1.6 3)dilated cardiomyopathy- EF 10% severe systolic dysfunction. 4)AICD 5)NSVT- replaced electrolytes- no more episodes. Current Visit: Yes (2) Hypertension Status: Chronic Current Visit: No (3) Ischemic dilated cardiomyopathy Status: Chronic Current Visit: No (4) Status post implantation of automatic cardioverter/defibrillator (AICD) Status: Acute Current Visit: No (5) Chronic kidney disease Status: Acute Current Visit: Yes Qualifiers: Chronic kidney disease stage: stage 2 (mild) Qualified Code(s): N18.2 - Chronic kidney disease, stage 2 (mild) (6) Urinary retention Status: Acute Current Visit: Yes Hospitalist: Subjective Interval history: MR Rolon is feeling good. his abdomen is back to its usual size. he has lost about 20# since dobutamine was started. Exam - Constitutional Vitals: Period Temp Pulse Resp BP Sys/Knight Pulse Ox Last 24 Hr 97.4 F-97.9 F 99-111 16-20 110-124/71-78 97-100 General appearance: normal weight, no acute distress - Head Head exam: Present: normocephalic, atraumatic - Eye Eye exam: Present: EOMI. Absent: scleral icterus Pupils: Present: KAIA - Respiratory Respiratory exam: Present: clear to auscultation bilaterally - Cardiovascular Cardiovascular exam: Present: regular rate and rhythm - GI/Abdominal GI/Abdominal exam: Present: normal bowel sounds, soft. Absent: tenderness - Extremities Exam Extremities exam: Present: edema (vastly better though still some present.) - Neurological Exam Neurological exam: Present: alert, oriented X3 Results - Labs CBC & BMP: 02/23/17 04:29 02/23/17 04:29 Lab Results: I have reviewed the past 24 hour labs
[2017-02-24] MEDS: ATORVASTATIN 80 MG TABLET PO SCH (21:23)
[2017-02-24] MEDS: TAMSULOSIN 0.4 MG CAPSULE PO SCH (21:23)
[2017-02-25 06:09] LABS: Basophils % 0.9 % (0.0-0.8); Eosinophils # 0.2 10*3/uL (0.0-0.87); Hematocrit 36.3 VOL% (42.0-52.0); Hemoglobin 11.7 GM/DL (14.0-18.0); Immature Granulocytes % 0.4 %; Immature Granulocytes Absolute 0.02 #; Lymphocytes # 1.3 10*3/uL (1.4-4.0); Lymphocytes % 27.9 % (21.2-54.2); Mean Corpuscular HGB Conc 32.2 GM/DL (32-36); Mean Corpuscular Hemoglobin 28 PG (27-34); Mean Corpuscular Volume 87.5 FL (87-102); Mean Platelet Volume 11.3 FL (9.6-12.0); Monocytes # 0.4 10*3/uL (0.11-0.8); Monocytes % 8.9 % (1.7-12.7); Neutrophils # 2.6 10*3/uL (1.4-7.4); Neutrophils % 57.9 % (38.7-73.9); Platelet Count 201 T/CUMM (130-400); Red Blood Count 4.15 MC/CUMM (3.8-5.5); Red Cell Distribution Width 19.1 % (9.3-17.3); White Blood Count 4.5 T/CUMM (4-12)
[2017-02-25 06:23] LABS: Calcium 9.6 MG/DL (8.5-10.1); Magnesium 1.8 MG/DL (1.8-2.4); Potassium 4.1 MMOL/L (3.5-5.1)
[2017-02-25 08:23] VITALS: BP 100/70
[2017-02-25] MEDS: ENOXAPARIN 40 MG/0.4 ML SYRINGE SUBCUT SCH (09:08)
[2017-02-25] MEDS: FUROSEMIDE 40 MG/4 ML VIAL IV SCH (09:08)
[2017-02-25] MEDS: LISINOPRIL 5 MG TABLET PO SCH (09:09)
[2017-02-25] MEDS: ALLOPURINOL 300 MG TABLET PO SCH (09:09)
[2017-02-25] MEDS: ASPIRIN EC 81 MG TABLET PO SCH (09:09)
[2017-02-25] MEDS: GLUCOSAMINE 500 MG TABLET PO SCH (09:09)
[2017-02-25] MEDS: METOPROLOL SUCCINATE XL 25 MG TABLET PO SCH (09:09)
[2017-02-25] MEDS: CLOPIDOGREL 75 MG TABLET PO SCH (09:10)
[2017-02-25] MEDS: POTASSIUM CHLORIDE 20 MEQ TABLET PO SCH (09:10)
[2017-02-25] MEDS: FAMOTIDINE 20 MG TABLET PO SCH (09:10)
[2017-02-25] MEDS: DOBUTamine 500 MG/250 ML PREMIX IV SCH (09:17)
--- NOTE | 2017-02-25 09:52 | Hospitalist Progress Note ---
Assessment and Plan - Time spent with patient Time spent with patient: Less than 30 minutes (1) Acute on chronic heart failure Status: Acute Current Visit: Yes Qualifiers: Heart failure type: combined Qualified Code(s): I50.43 - Acute on chronic combined systolic (congestive) and diastolic (congestive) heart failure (2) S/P implantation of automatic cardioverter/defibrillator (AICD) Status: Chronic Current Visit: No (3) Chronic kidney disease Status: Acute Current Visit: Yes Qualifiers: Chronic kidney disease stage: stage 2 (mild) Qualified Code(s): N18.2 - Chronic kidney disease, stage 2 (mild) Exam - Constitutional Vitals: Period Temp Pulse Resp BP Sys/Knight Pulse Ox Last 24 Hr 97.9 F-98.6 F 93-106 16-20 100-113/64-79 96-100 Results - Labs CBC & BMP: 02/25/17 05:02 02/25/17 05:02 Lab Results: I have reviewed the past 24 hour labs
[2017-02-25] MEDS ORDERED: FUROSEMIDE 80 MG TABLET PO SCH (10:00)
--- NOTE | 2017-02-25 10:04 | Discharge Summary ---
Hospital Course - Hospital Course Hospital Course: Mr. Madsen is a 46-year-old white male with a history of severe ischemic cardiomyopathy status post single-chamber AICD with ejection fraction estimated 10-15% who was admitted for acute on chronic systolic congestive heart failure. He was diuresed and seen by cardiology during his stay. He was also on IV dobutamine which is now been weaned and is lost approximately 20 pounds since admission. He is essentially asymptomatic at this time and his renal function has remained stable. There is felt he has reached maximal benefit from hospital stay can be discharged home with outpatient follow-up with Dr. Herrera in 1-2 weeks with a BMP. - Time spent with patient Time with patient DS: Less than 30 minutes Diagnosis - Discharge Diagnosis (1) Acute on chronic heart failure Status: Acute (2) S/P implantation of automatic cardioverter/defibrillator (AICD) Status: Chronic (3) Chronic kidney disease Status: Chronic Discharge Plan - Discharge Data Disposition: Disch To Home/Self Care Condition at Discharge: Stable Discharge Diet: low salt diet Activity: resume usual activities as tolerated Hygiene: no restrictions Contact your physician if you experience:: Shortness of breath - Discharge Medications New Potassium Chloride Cap/Tab [K Dur] 20 meq PO BID #60 tablet Tamsulosin [Flomax] 0.4 mg PO BEDTIME #30 capsule Furosemide Tab [Lasix Tab] 80 mg PO DAILY #30 tablet Continue Allopurinol [Zyloprim] 300 mg PO DAILY Carvedilol [Coreg] 6.25 mg PO BID #60 tablet Atorvastatin [Lipitor] 80 mg PO BEDTIME #30 tablet Famotidine Tab [Pepcid Tab] 20 mg PO BID #30 tablet Clopidogrel [Plavix] 75 mg PO DAILY #30 tablet Aspirin EC Tab 81 mg PO DAILY #30 tablet Glucosamine/D3/Boswellia Mary [Osteo Bi-Flex Caplet] 1 each PO DAILY Lisinopril [Prinivil] 5 mg PO DAILY Discontinued Azithromycin Tab [Zithromax Tab] 250 mg PO DAILY #6 tablet Furosemide Tab [Lasix Tab] 40 mg PO BID DIURETIC #60 tablet - Follow Up or Referral Follow Up: Valencia Herrera DO [Physician] - 1 Week - Forms/Instructions Exam - Constitutional Vitals: Period Temp Pulse Resp BP Sys/Knight Pulse Ox Last 24 Hr 97.9 F-98.6 F 93-106 16-20 100-113/64-79 96-100 General appearance: no acute distress - Head Head exam: Present: normocephalic, atraumatic - Eye Eye exam: Present: EOMI Pupils: Present: KAIA - ENT ENT exam: Present: normal exam - Neck Neck exam: Present: normal inspection - Respiratory Respiratory exam: Present: clear to auscultation bilaterally. Absent: rales - Cardiovascular Cardiovascular exam: Present: regular rate and rhythm. Absent: JVD, tachycardia - GI/Abdominal GI/Abdominal exam: Present: normal bowel sounds, soft. Absent: mass, tenderness , rebound - Extremities Exam Extremities exam: Absent: calf tenderness, edema - Back Exam Back exam: Present: normal inspection - Neurological Exam Neurological exam: Present: alert, oriented X3, CN II-XII intact. Absent: motor sensory deficit - Psychiatric Psychiatric exam: Present: normal affect, normal mood. Absent: agitated - Skin Skin exam: Present: warm, dry. Absent: rash Discharge Results Procedures and tests throughout hospitalization: Pending Orders 02/26/17 04:00 BMP w/ Mg [Basic Metabolic Panel w/Mg] IN AM CBC [Comp Blood Count Auto Diff] IN AM 02/27/17 04:00 BMP w/ Mg [Basic Metabolic Panel w/Mg] IN AM CBC [Comp Blood Count Auto Diff] IN AM Labs on day of discharge: Labs from last 24 hours 02/25/17 02/25/17 05:02 05:02 WBC 4.5 RBC 4.15 Hgb 11.7 L Hct 36.3 L MCV 87.5 MCH 28 MCHC 32.2 RDW 19.1 H Plt Count 201 MPV 11.3 Neut % (Auto) 57.9 Lymph % (Auto) 27.9 Noble % (Auto) 8.9 Eos % (Auto) 4.0 Baso % (Auto) 0.9 H Neut # (Auto) 2.6 Lymph # (Auto) 1.3 L Noble # (Auto) 0.4 Eos # (Auto) 0.2 Baso # (Auto) 0.0 Immature Gran % 0.4 Nucleated RBC % 0.0 Immature Gran # 0.02 Nucleated RBCs # 0.00 Sodium 136 Potassium 4.1 Chloride 98 Carbon Dioxide 28 Anion Gap 14.1 BUN 17 Creatinine 1.40 H GFR Calculation 76 BUN/Creatinine Ratio 12.00 Glucose 97 Calculated Osmolality 273.0 Calcium 9.6 Magnesium 1.8 DS: Provider Date of admission: 02/19/17 09:05 Primary care physician: Primitivo Tubbs Attending physician on admission: Huan Norman Consults: 02/19/17 10:40 Consult to Physician [CONS] Routine Comment: urinary retention Consulting Provider: Rolly Godoy Discharging clinician: Ryanne Coy Expected date of discharge: 02/25/17
--- NOTE | 2017-02-25 10:45 | Cardiology Progress Note ---
Assessment and Plan (1) Acute on chronic heart failure Status: Acute Assessment and plan: He appears to be significantly improved hopefully we can continue seeing improvement in his exertional ability. He is ready for discharge at this time. Current Visit: Yes Qualifiers: Heart failure type: combined Qualified Code(s): I50.43 - Acute on chronic combined systolic (congestive) and diastolic (congestive) heart failure (2) Chronic renal insufficiency Status: Chronic Current Visit: Yes (3) Ischemic cardiomyopathy Status: Acute Current Visit: No Cardiology - PN: Subj Interval history: Patient is doing well this morning. He has voided. Overall he is doing well and our plan is to discharge the patient to have him follow with Dr. Perry in several weeks. Activities medications and precautions have been reviewed with the patient. I think he is reached maximal hospital benefit and will be discharged today. Exam (Progress Note) - Constitutional Vitals: Period Temp Pulse Resp BP Sys/Knight Pulse Ox Last 24 Hr 97.9 F-98.6 F 93-106 16-20 100-113/64-79 96-100 Exam: General:no acute distress. alert and oriented, mood and affect are normal HEENT: no new lesions, sclerae are clear, mouth and pharynx benign Neck: supple, trachea midline, no JVD noted Lungs: no rales ronchi or wheeze is noted. pt comfortable without accesory muscle use to assist with breathing CV: RRR no murmur rub or gallop is noted. Abd: soft and nontender, BSNA, no masses. Ext: no cyanosis, clubbing or edema Neuro: grossly intact without focal neurologic deficit. Result/EKG - Labs CBC & BMP: 02/25/17 05:02 02/25/17 05:02 Labs: Laboratory Results - last 24 hr 02/25/17 02/25/17 05:02 05:02 WBC 4.5 RBC 4.15 Hgb 11.7 L Hct 36.3 L MCV 87.5 MCH 28 MCHC 32.2 RDW 19.1 H Plt Count 201 MPV 11.3 Neut % (Auto) 57.9 Lymph % (Auto) 27.9 Summers % (Auto) 8.9 Eos % (Auto) 4.0 Baso % (Auto) 0.9 H Neut # (Auto) 2.6 Lymph # (Auto) 1.3 L Summers # (Auto) 0.4 Eos # (Auto) 0.2 Baso # (Auto) 0.0 Immature Gran % 0.4 Nucleated RBC % 0.0 Immature Gran # 0.02 Nucleated RBCs # 0.00 Sodium 136 Potassium 4.1 Chloride 98 Carbon Dioxide 28 Anion Gap 14.1 BUN 17 Creatinine 1.40 H GFR Calculation 76 BUN/Creatinine Ratio 12.00 Glucose 97 Calculated Osmolality 273.0 Calcium 9.6 Magnesium 1.8 Specialty Discharge - Follow Up or Referrals Follow up with: Valencia Herrera DO [Physician] - 1 Week
== END 2017-02-25 11:55 | disposition home or self-care (01) | DRG 194 ==
LOC: N.ED 22:26 → N.EDINP 22:26 → SUATTDRO 02-19 03:36 → N.TELEN 02-19 04:16 → SUATTDRO 02-19 09:05
PROVIDERS: ADMIT Family Medicine; ATTEND Hospitalist

== ENCOUNTER 2019-11-18 20:14 | Observation (INO) ==
[2019-11-18 21:32] LABS: Basophils # 0.1 10*3/uL (0.0-0.2); Basophils % 0.6 % (0.0-0.8); Eosinophils # 0.1 10*3/uL (0.0-0.87); Hemoglobin 12.1 GM/DL (14.0-18.0); Immature Granulocytes % 0.4 %; Immature Granulocytes Absolute 0.03 #; Lymphocytes # 0.8 10*3/uL (1.4-4.0); Lymphocytes % 10.5 % (21.2-54.2); Mean Corpuscular HGB Conc 33.6 GM/DL (32-36); Mean Corpuscular Volume 93.8 FL (87-102); Mean Platelet Volume 10.5 FL (9.6-12.0); Monocytes % 6.8 % (1.7-12.7); Neutrophils % 80.7 % (38.7-73.9); Platelet Count 141 T/CUMM (130-400); Red Blood Count 3.84 MC/CUMM (3.8-5.5); Red Cell Distribution Width 14.2 % (9.3-17.3)
[2019-11-18 21:51] LABS: Apearance,Urine CLEAR (Clear); Bacteria,Urine Occasional /HPF (Few); Barbiturates Screen,Urine Negative (Negative); Benzodiazepines Screen,Urine Negative (Negative); Bilirubin,Urine Negative (Negative); Blood, Urine Negative (Negative); Cannabinoid Screen,Urine Negative (Negative); Glucose,Urine (UA) Negative (Negative); Hyaline Casts,Urine 4 /LPF (0-3); Ketones,Urine Negative (Negative); Mucus,Urine Occasional /LPF (Occasional); Nitrite,Urine Negative (Negative); Opiate Screen,Urine Negative (Negative); Phencyclidine Screen,Urine Negative (Negative); Protein,Urine 100 MG/DL; Urine Color Yellow (Yellow); Urine Urobilinogen < 2.0 EU/DL (0.2-1.0); WBC,Urine <1 /HPF (0-6)
[2019-11-18 21:53] LABS: Alanine Aminotransferase 23 U/L (16-61); Albumin 4.1 G/DL (3.4-5.0); Alkaline Phosphatase 88 U/L (45-117); Amylase 24 U/L (25-115); Aspartate Amino Transferase 21 U/L (0-37); Blood Urea Nitrogen 16 MG/DL (7-18); Estimated Glom Filtration Rate 77 ML/MIN; Glucose 111 MG/DL (74-106); Osmolality,Calculated 258.1 MOS/KG (273-304); Total Protein 7.5 G/DL (6.4-8.3)
[2019-11-18 21:54] LABS: Troponin I 0.119 NG/ML (0.00-0.045)
[2019-11-18 22:00] LABS: Prolactin 14.3 NG/ML
[2019-11-18] MEDS ORDERED: MAGNESIUM SULF RIDER 2 GM in PREMIX 1 EACH IV STA (22:20)
[2019-11-18] MEDS ORDERED: FUROSEMIDE 40 MG/4 ML VIAL IV STA (22:20)
[2019-11-18] MEDS ORDERED: POTASSIUM CHLORIDE 20 MEQ TABLET PO STA (22:31)
[2019-11-18] MEDS ORDERED: AMIODARONE INJ 450 MG in DEXTROSE 5% 241 ML IV SCH (23:00)
[2019-11-18] MEDS ORDERED: DEXTROSE 50% 25 GM/50 ML SYRINGE IV PRN (23:02)
[2019-11-18] MEDS ORDERED: MORPHINE 4 MG/1 ML VIAL IV PRN (23:02)
[2019-11-18] MEDS ORDERED: MAGNESIUM SULF RIDER 4 GM in PREMIX 1 EACH IV PRN (23:02)
[2019-11-18] MEDS ORDERED: MAGNESIUM SULF RIDER 2 GM in PREMIX 1 EACH IV PRN (23:02)
[2019-11-18] MEDS ORDERED: ONDANSETRON 4 MG/2 ML VIAL IV PRN (23:02)
[2019-11-18] MEDS ORDERED: GLUCAGON 1 MG VIAL IM PRN (23:02)
[2019-11-18] MEDS: SODIUM CHLORIDE 0.9% 1,000 ML IV SCH (23:30)
[2019-11-19] MEDS: INSULIN REGULAR 100 UNIT/ML SUBCUT SCH ×4 (00:30→18:01)
[2019-11-19 00:52] LABS: Troponin I 0.104 NG/ML (0.00-0.045)
[2019-11-19] MEDS: AMIODARONE INJ 450 MG in DEXTROSE 5% 241 ML IV SCH ×2 (04:45→09:58)
[2019-11-19 05:13] LABS: Basophils % 0.5 % (0.0-0.8); Eosinophils % 0.7 % (0.00-10.9); Hematocrit 34.9 VOL% (42.0-52.0); Hemoglobin 11.8 GM/DL (14.0-18.0); Immature Granulocytes % 0.5 %; Immature Granulocytes Absolute 0.03 #; Lymphocytes # 0.8 10*3/uL (1.4-4.0); Lymphocytes % 13.7 % (21.2-54.2); Mean Corpuscular HGB Conc 33.8 GM/DL (32-36); Mean Corpuscular Volume 93.6 FL (87-102); Mean Platelet Volume 11.1 FL (9.6-12.0); Monocytes % 8.6 % (1.7-12.7); Platelet Count 139 T/CUMM (130-400); Red Blood Count 3.73 MC/CUMM (3.8-5.5); Red Cell Distribution Width 14.3 % (9.3-17.3); White Blood Count 5.5 T/CUMM (4-12)
[2019-11-19 05:20] LABS: Albumin 3.6 G/DL (3.4-5.0); Bilirubin,Total 1.3 MG/DL (0.2-1.0); Osmolality,Calculated 269.2 MOS/KG (273-304); Risk Ratio 2.14; Total Protein 7.1 G/DL (6.4-8.3); VLDL CHOLESTEROL 12.8 MG/DL
[2019-11-19] MEDS ORDERED: DOCUSATE SODIUM 100 MG CAPSULE PO PRN (08:19)
[2019-11-19] MEDS ORDERED: ZALEPLON 5 MG CAPSULE PO PRN (08:19)
[2019-11-19] MEDS ORDERED: BISACODYL 5 MG TABLET PO PRN (08:19)
[2019-11-19 08:25] LABS: Troponin I 0.101 NG/ML (0.00-0.045)
[2019-11-19] MEDS ORDERED: ENOXAPARIN 40 MG/0.4 ML SYRINGE SUBCUT SCH (08:30)
[2019-11-19] MEDS ORDERED: allopurinoL 300 MG TABLET PO SCH ×2 (09:00→21:00)
[2019-11-19] MEDS ORDERED: ASPIRIN EC 81 MG TABLET PO SCH ×2 (09:00→21:00)
[2019-11-19] MEDS ORDERED: AMIODARONE 200 MG TABLET PO SCH (09:00)
[2019-11-19] MEDS: PANTOPRAZOLE 40 MG TABLET PO SCH (09:02)
[2019-11-19] MEDS: CLOPIDOGREL 75 MG TABLET PO SCH (09:02)
[2019-11-19] MEDS: MAGNESIUM OXIDE 400 MG TABLET PO SCH ×2 (09:02→21:51)
[2019-11-19] MEDS: FUROSEMIDE 40 MG/4 ML VIAL IV SCH ×2 (09:06→18:55)
[2019-11-19] MEDS: SACUBITRIL/VALSARTAN 49-51 MG TABLET PO SCH ×2 (09:12→21:51)
[2019-11-19] MEDS: SPIRONOLACTONE 25 MG TABLET PO SCH (09:12)
[2019-11-19] MEDS: carvediloL 12.5 MG TABLET PO SCH ×2 (09:20→21:52)
[2019-11-19] MEDS ORDERED: LORazepam 2 MG/1 ML VIAL IV PRN (10:21)
[2019-11-19] MEDS ORDERED: DIAZEPAM 5 MG TABLET PO ONE (13:59)
[2019-11-19] MEDS ORDERED: diphenhydrAMINE CAP 25 MG CAPSULE PO ONE (13:59)
[2019-11-19] MEDS ORDERED: LIDOCAINE 1% 20 ML VIAL ONE (14:06)
[2019-11-19] MEDS ORDERED: HEPARIN/NACL 0.9% 2 UNITS/ML 1,000 ML IV ONE (14:06)
[2019-11-19] MEDS ORDERED: fentaNYL 100 MCG/2 ML VIAL ONE (14:25)
[2019-11-19] MEDS ORDERED: MIDAZOLAM 2 MG/2 ML VIAL ONE (14:25)
[2019-11-19] MEDS ORDERED: diphenhydrAMINE 50 MG/1 ML VIAL ONE (14:33)
[2019-11-19] MEDS ORDERED: ATORVASTATIN 40 MG TABLET PO SCH (21:00)
[2019-11-19] MEDS ORDERED: TAMSULOSIN 0.4 MG CAPSULE PO SCH (21:00)
[2019-11-20] MEDS: SODIUM CHLORIDE 0.9% 1,000 ML IV SCH (00:15)
[2019-11-20] MEDS: INSULIN REGULAR 100 UNIT/ML SUBCUT SCH ×3 (00:34→12:37)
[2019-11-20 06:21] LABS: Basophils % 0.6 % (0.0-0.8); Eosinophils # 0.1 10*3/uL (0.0-0.87); Eosinophils % 1.3 % (0.00-10.9); Hematocrit 34.5 VOL% (42.0-52.0); Hemoglobin 11.3 GM/DL (14.0-18.0); Immature Granulocytes % 0.3 %; Immature Granulocytes Absolute 0.02 #; Lymphocytes # 1.2 10*3/uL (1.4-4.0); Lymphocytes % 19.2 % (21.2-54.2); Mean Corpuscular HGB Conc 32.8 GM/DL (32-36); Mean Corpuscular Volume 95.8 FL (87-102); Mean Platelet Volume 10.9 FL (9.6-12.0); Monocytes % 9.9 % (1.7-12.7); Neutrophils % 68.7 % (38.7-73.9); Platelet Count 139 T/CUMM (130-400); Red Cell Distribution Width 14.6 % (9.3-17.3); White Blood Count 6.4 T/CUMM (4-12)
[2019-11-20 06:36] LABS: Calcium 8.6 MG/DL (8.5-10.1); Osmolality,Calculated 262.7 MOS/KG (273-304)
[2019-11-20] MEDS ORDERED: AMIODARONE 200 MG TABLET PO SCH (09:00)
[2019-11-20] MEDS ORDERED: RANOLAZINE 500 MG TABLET PO SCH (09:00)
[2019-11-20] MEDS ORDERED: ISOSORBIDE MONONITRATE 30 MG TABLET PO SCH (09:00)
[2019-11-20] MEDS: FUROSEMIDE 40 MG/4 ML VIAL IV SCH (09:13)
[2019-11-20] MEDS: SACUBITRIL/VALSARTAN 49-51 MG TABLET PO SCH (09:14)
[2019-11-20] MEDS: CLOPIDOGREL 75 MG TABLET PO SCH (09:14)
[2019-11-20] MEDS: MAGNESIUM OXIDE 400 MG TABLET PO SCH (09:14)
[2019-11-20] MEDS: SPIRONOLACTONE 25 MG TABLET PO SCH (09:14)
[2019-11-20] MEDS: PANTOPRAZOLE 40 MG TABLET PO SCH (09:15)
[2019-11-20] MEDS: carvediloL 12.5 MG TABLET PO SCH (09:15)
[2019-11-20 12:21] VITALS: BP 104/67
== END 2019-11-20 15:55 | disposition home health service (06) ==
LOC: EDUNIT# → EDBD → N.ED 20:14 → N.EDINP 20:14 → N.TELES 11-19 14:15
PROVIDERS: ADMIT Internal Medicine Cardiovascular Disease; ATTEND Internal Medicine Cardiovascular Disease

== ENCOUNTER 2019-11-28 06:06 | Inpatient (IN) ==
[~2019-11-28 06:06] MED LIST: MAGNESIUM SULF RIDER 2 GM in PREMIX 1 EACH IV PRN; POTASSIUM CHLORIDE RIDER 10 MEQ in PREMIX 1 EACH IV PRN
[2019-11-28 06:53] LABS: Basophils # 0.1 10*3/uL (0.0-0.2); Basophils % 0.8 % (0.0-0.8); Eosinophils # 0.1 10*3/uL (0.0-0.87); Eosinophils % 2.1 % (0.00-10.9); Hematocrit 34.4 VOL% (42.0-52.0); Hemoglobin 11.4 GM/DL (14.0-18.0); Immature Granulocytes % 0.5 %; Immature Granulocytes Absolute 0.03 #; Lymphocytes # 1.4 10*3/uL (1.4-4.0); Lymphocytes % 23.5 % (21.2-54.2); Mean Corpuscular HGB Conc 33.1 GM/DL (32-36); Mean Corpuscular Volume 94.2 FL (87-102); Mean Platelet Volume 10.5 FL (9.6-12.0); Monocytes % 9.3 % (1.7-12.7); Neutrophils % 63.8 % (38.7-73.9); Platelet Count 180 T/CUMM (130-400); Red Blood Count 3.65 MC/CUMM (3.8-5.5); Red Cell Distribution Width 14.6 % (9.3-17.3); White Blood Count 6.1 T/CUMM (4-12)
[2019-11-28] MEDS ORDERED: DIAZEPAM 5 MG TABLET PO ONE (07:11)
[2019-11-28] MEDS ORDERED: diphenhydrAMINE CAP 25 MG CAPSULE PO ONE (07:11)
[2019-11-28 07:12] LABS: Calcium 9.4 MG/DL (8.5-10.1); Osmolality,Calculated 262.7 MOS/KG (273-304)
[2019-11-28] MEDS ORDERED: diphenhydrAMINE CAP 25 MG CAPSULE ONE (07:20)
[2019-11-28] MEDS ORDERED: DIAZEPAM 5 MG TABLET ONE (07:20)
[2019-11-28] MEDS ORDERED: LIDOCAINE 1% 20 ML VIAL ONE (08:25)
[2019-11-28] MEDS ORDERED: HEPARIN/NACL 0.9% 2 UNITS/ML 1,000 ML IV ONE (08:25)
[2019-11-28] MEDS ORDERED: MIDAZOLAM 2 MG/2 ML VIAL ONE (08:54)
[2019-11-28] MEDS ORDERED: fentaNYL 100 MCG/2 ML VIAL ONE (08:54)
[2019-11-28] MEDS ORDERED: HEPARIN 5,000 UNIT/1 ML VIAL ONE (09:17)
[2019-11-28] MEDS ORDERED: NITROGLYCERIN SL 0.4 MG TABLET SL PRN (09:22)
[2019-11-28] MEDS ORDERED: POTASSIUM CHLORIDE 20 MEQ TABLET PO ONE ×2 (09:26→12:00)
[2019-11-28] MEDS ORDERED: HEPARIN DRIP 25,000 UNITS/500 ML PREMIX IV SCH (09:30)
[2019-11-28] MEDS ORDERED: DEXTROSE 50% 25 GM/50 ML VIAL IV PRN (09:59)
[2019-11-28] MEDS ORDERED: CEFUROXIME INJ 1,500 MG in SYRINGE 1 EACH IV ONE (09:59)
[2019-11-28] MEDS ORDERED: GLUCAGON 1 MG VIAL IM PRN (09:59)
[2019-11-28] MEDS ORDERED: SODIUM CHLORIDE 0.9% 1,000 ML IV SCH ×2 (10:00→10:30)
[2019-11-28 10:18] LABS: Basophils % 0.7 % (0.0-0.8); Eosinophils # 0.1 10*3/uL (0.0-0.87); Eosinophils % 1.9 % (0.00-10.9); Hematocrit 32.6 VOL% (42.0-52.0); Hemoglobin 10.8 GM/DL (14.0-18.0); Immature Granulocytes % 0.4 %; Immature Granulocytes Absolute 0.02 #; Lymphocytes # 1.3 10*3/uL (1.4-4.0); Lymphocytes % 24.4 % (21.2-54.2); Mean Corpuscular HGB Conc 33.1 GM/DL (32-36); Mean Corpuscular Volume 93.9 FL (87-102); Mean Platelet Volume 10.5 FL (9.6-12.0); Neutrophils % 64.6 % (38.7-73.9); Platelet Count 186 T/CUMM (130-400); Red Blood Count 3.47 MC/CUMM (3.8-5.5); Red Cell Distribution Width 14.6 % (9.3-17.3); White Blood Count 5.4 T/CUMM (4-12)
[2019-11-28] MEDS: ASCORBIC ACID 500 MG TABLET PO SCH ×2 (10:33→20:06)
[2019-11-28 11:51] LABS: ABG Base Excess 5.3 MMOL/L (-2.5-2.5); ABG HCO3 29.2 MMOL/L (20-26); ABG Oxygen Saturation 97.5 % (95-100); ABG PCO2 39.8 MM HG (35-48); ABG PH 7.474 (7.35-7.45); ABG PO2 90.2 MM HG (80-95)
[2019-11-28] MEDS: CHLORHEXIDINE 4% SOLN 118 ML BOTTLE TOP SCH ×2 (14:51→20:14)
[2019-11-28] MEDS ORDERED: LORazepam 0.5 MG TABLET PO PRN (16:47)
[2019-11-28] MEDS: THIAMINE 200 MG/2 ML VIAL IM SCH (17:24)
[2019-11-28] MEDS: AMIODARONE 200 MG TABLET PO SCH (20:05)
[2019-11-28] MEDS: carvediloL 12.5 MG TABLET PO SCH (20:06)
[2019-11-28] MEDS: RANOLAZINE 500 MG TABLET PO SCH (20:06)
[2019-11-28] MEDS: MAGNESIUM OXIDE 400 MG TABLET PO SCH (20:06)
[2019-11-28] MEDS: POTASSIUM CHLORIDE 20 MEQ TABLET PO SCH (20:06)
[2019-11-28] MEDS: CHLORHEXIDINE 0.12% ORAL RINSE 60 ML BOTTLE SWISH/SPIT SCH (20:14)
[2019-11-28] MEDS ORDERED: TAMSULOSIN 0.4 MG CAPSULE PO SCH (21:00)
[2019-11-28] MEDS ORDERED: ATORVASTATIN 80 MG TABLET PO SCH (21:00)
[2019-11-28] MEDS ORDERED: ASPIRIN EC 81 MG TABLET PO SCH (21:00)
[2019-11-28] MEDS ORDERED: allopurinoL 300 MG TABLET PO SCH (21:00)
[2019-11-29] MEDS ORDERED: PAPAVERINE 60 MG/2 ML VIAL ONE (04:20)
[2019-11-29] MEDS ORDERED: VANCOMYCIN 1,000 MG VIAL ONE (04:21)
[2019-11-29] MEDS ORDERED: VANCOMYCIN 500 MG VIAL ONE (04:21)
[2019-11-29 04:44] LABS: Basophils # 0.1 10*3/uL (0.0-0.2); Basophils % 0.9 % (0.0-0.8); Eosinophils # 0.1 10*3/uL (0.0-0.87); Eosinophils % 1.8 % (0.00-10.9); Hematocrit 32.4 VOL% (42.0-52.0); Hemoglobin 10.8 GM/DL (14.0-18.0); Immature Granulocytes % 0.4 %; Immature Granulocytes Absolute 0.02 #; Lymphocytes # 1.2 10*3/uL (1.4-4.0); Mean Corpuscular HGB Conc 33.3 GM/DL (32-36); Mean Corpuscular Volume 93.4 FL (87-102); Monocytes % 9.2 % (1.7-12.7); Neutrophils % 66.7 % (38.7-73.9); Platelet Count 172 T/CUMM (130-400); Red Blood Count 3.47 MC/CUMM (3.8-5.5); Red Cell Distribution Width 14.7 % (9.3-17.3); White Blood Count 5.6 T/CUMM (4-12)
[2019-11-29 05:08] LABS: Calcium 9.2 MG/DL (8.5-10.1); Osmolality,Calculated 268.2 MOS/KG (273-304)
[2019-11-29] MEDS ORDERED: MIDAZOLAM 10 MG/2 ML VIAL ONE (05:31)
[2019-11-29] MEDS ORDERED: fentaNYL 250 MCG/5 ML VIAL ONE (05:34)
[2019-11-29] MEDS ORDERED: CALCIUM CHLORIDE 1,000 MG/10 ML VIAL IV ONE (05:34)
[2019-11-29] MEDS ORDERED: DOBUTamine 500 MG/250 ML PREMIX IV ONE ×2 (05:34→11:28)
[2019-11-29] MEDS ORDERED: HEPARIN/NACL 0.9% 2 UNITS/ML 500 ML IV ONE (05:34)
[2019-11-29] MEDS ORDERED: PHENYLEPHRINE DRIP 20 MG/250 ML PREMIX IV ONE (05:34)
[2019-11-29] MEDS ORDERED: AMINOCAPROIC ACID 5,000 MG/20 ML VIAL ONE (05:35)
[2019-11-29] MEDS ORDERED: LACTATED RINGERS 1,000 ML IV ONE (05:35)
[2019-11-29] MEDS ORDERED: AMIODARONE 150 MG/3 ML VIAL ONE ×3 (05:35→19:23)
[2019-11-29] MEDS ORDERED: SODIUM CHLORIDE 0.9% 1,000 ML IV ONE (05:35)
[2019-11-29] MEDS ORDERED: ETOMIDATE 40 MG/20 ML VIAL IV ONE (05:35)
[2019-11-29] MEDS ORDERED: SODIUM CHLORIDE 0.9% 250 ML IV ONE (05:35)
[2019-11-29] MEDS ORDERED: ePHEDrine 50 MG/ML AMP ONE (05:35)
[2019-11-29] MEDS ORDERED: VECURONIUM 10 MG VIAL IV ONE (05:35)
[2019-11-29] MEDS ORDERED: EPINEPHrine 1 MG/ML VIAL ONE (05:35)
[2019-11-29] MEDS ORDERED: NITROGLYCERIN DRIP 50 MG/250 ML BOTTLE IV ONE (05:35)
[2019-11-29] MEDS ORDERED: SODIUM CHLORIDE 0.9% 1,000 ML IV SCH (07:00)
[2019-11-29] MEDS ORDERED: CEFUROXIME INJ 1,500 MG in SYRINGE 1 EACH IV ONE (07:00)
[2019-11-29 07:53] LABS: ABG Base Excess 3.6 MMOL/L (-2.5-2.5); ABG HCO3 27.7 MMOL/L (20-26); ABG PCO2 35.2 MM HG (35-48); ABG PH 7.489 (7.35-7.45); ABG TCO2 23.8 MMOL/L (23-27); Glucose Heart Surgery 113 MG/DL (74-106); Hematocrit Heart Surgery 35.3 PERCENT (42-52); Hemoglobin Heart Surgery 11.5 G/DL (14.0-18.0); Ionized Calcium Arterial 1.18 MMOL/L (1.21-1.46); PCO2 Patient Temp Arterial 35.2 MMHG; PH Patient Temp Arterial 7.489; Patient Temperature 37 CELCIUS; Potassium Heart/CVR 3.5 MMOL/L (3.5-5.1); Sodium Heart/CVR 135 MMOL/L (135-145)
[2019-11-29] MEDS ORDERED: NITROPRUSSIDE 50 MG/2 ML VIAL ONE (08:11)
[2019-11-29] MEDS ORDERED: PHENYLEPHRINE DRIP 40 MG/250 ML PREMIX IV ONE (08:12)
[2019-11-29] MEDS ORDERED: POTASSIUM CHLORIDE RIDER 100 ML IV ONE (08:12)
[2019-11-29] MEDS ORDERED: SODIUM BICARBONATE 50 MEQ/50 ML VIAL IV ONE ×6 (08:12→21:46)
[2019-11-29] MEDS ORDERED: CALCIUM CHLORIDE 1,000 MG/10 ML SYRINGE IV ONE ×2 (08:12→19:23)
[2019-11-29] MEDS ORDERED: PANTOPRAZOLE 40 MG TABLET PO SCH (09:00)
[2019-11-29] MEDS: THIAMINE 200 MG/2 ML VIAL IM SCH (09:00)
[2019-11-29] MEDS: MAGNESIUM OXIDE 400 MG TABLET PO SCH (09:00)
[2019-11-29] MEDS ORDERED: ISOSORBIDE MONONITRATE 30 MG TABLET PO SCH (09:00)
[2019-11-29] MEDS: carvediloL 12.5 MG TABLET PO SCH (09:00)
[2019-11-29] MEDS: POTASSIUM CHLORIDE 20 MEQ TABLET PO SCH (09:00)
[2019-11-29] MEDS: CHLORHEXIDINE 4% SOLN 118 ML BOTTLE TOP SCH (09:00)
[2019-11-29] MEDS: RANOLAZINE 500 MG TABLET PO SCH (09:00)
[2019-11-29] MEDS ORDERED: FUROSEMIDE 80 MG TABLET PO SCH (09:00)
[2019-11-29] MEDS: CHLORHEXIDINE 0.12% ORAL RINSE 60 ML BOTTLE SWISH/SPIT SCH (09:00)
[2019-11-29] MEDS: ASCORBIC ACID 500 MG TABLET PO SCH (09:00)
[2019-11-29] MEDS: AMIODARONE 200 MG TABLET PO SCH (09:00)
[2019-11-29 09:23] LABS: Hemoglobin Heart Surgery 8.4 G/DL (14.0-18.0); PCO2 Patient Temp Venous 35.2 MM HG; PH Patient Temp Venous 7.504; PO2 Patient Temp Venous 39.5 MM HG; Potassium Heart/CVR 4.1 MMOL/L (3.5-5.1); VBG Base Excess 4.6 MEQ/L (0-4); VBG HCO3 28.3 MEQ/L (24-28); VBG PCO2 38.8 MMHG (41-51); VBG PH 7.474; VBG PO2 45.4 MMHG (17-40)
[2019-11-29 09:57] LABS: Hematocrit Heart Surgery 30.5 PERCENT (42-52); Hemoglobin Heart Surgery 9.9 G/DL (14.0-18.0); PCO2 Patient Temp Venous 33.1 MM HG; PH Patient Temp Venous 7.519; Potassium Heart/CVR 4.2 MMOL/L (3.5-5.1); VBG Base Excess 4.3 MEQ/L (0-4); VBG Oxygen Saturation 82.6 %; VBG PCO2 38.2 MMHG (41-51); VBG PH 7.473; VBG PO2 47.9 MMHG (17-40)
[2019-11-29] MEDS ORDERED: LIDOCAINE 2% 5 ML VIAL ONE (10:40)
[2019-11-29] MEDS ORDERED: MANNITOL 100 GM/500 ML BAG IV ONE (10:40)
[2019-11-29] MEDS ORDERED: DEXTROSE 5% KCL 20 MEQ 20 MEQ/1,000 ML BAG IV ONE (10:40)
[2019-11-29] MEDS ORDERED: methylPREDNISolone SOD SUC 1,000 MG/8 ML VIAL ONE (10:41)
[2019-11-29] MEDS ORDERED: ALBUMIN 25% 25 GM/100 ML VIAL IV ONE (10:41)
[2019-11-29] MEDS ORDERED: HEPARIN/NACL 0.9% 2 UNITS/ML 1,000 ML IV ONE (10:41)
[2019-11-29] MEDS ORDERED: MAGNESIUM SULFATE 5 GM/10 ML VIAL IV ONE (10:41)
[2019-11-29] MEDS ORDERED: FUROSEMIDE 20 MG/2 ML VIAL ONE (10:41)
[2019-11-29] MEDS ORDERED: HEPARIN 10,000 UNIT/10 ML VIAL ONE (10:41)
[2019-11-29] MEDS ORDERED: PROTAMINE SULFATE 250 MG/25 ML VIAL IV ONE (10:41)
[2019-11-29] MEDS ORDERED: PROTAMINE SULFATE 50 MG/5 ML VIAL IV ONE (10:42)
[2019-11-29 10:59] LABS: Hematocrit Heart Surgery 31.1 PERCENT (42-52); Hemoglobin Heart Surgery 10.1 G/DL (14.0-18.0); PCO2 Patient Temp Venous 37.5 MM HG; PH Patient Temp Venous 7.463; Potassium Heart/CVR 3.4 MMOL/L (3.5-5.1); VBG Base Excess 3.1 MEQ/L (0-4); VBG HCO3 27.2 MEQ/L (24-28); VBG PCO2 37.5 MMHG (41-51); VBG PH 7.463
[2019-11-29] MEDS: SODIUM CHLORIDE 0.45% 1,000 ML IV SCH ×2 (11:50)
[2019-11-29] MEDS ORDERED: ONDANSETRON 4 MG/2 ML VIAL IV PRN (12:03)
[2019-11-29] MEDS ORDERED: MIDAZOLAM 2 MG/2 ML VIAL IV PRN (12:03)
[2019-11-29] MEDS ORDERED: VECURONIUM 10 MG VIAL IV PRN ×2 (12:03)
[2019-11-29] MEDS ORDERED: MIDAZOLAM 10 MG/2 ML VIAL IV PRN (12:03)
[2019-11-29] MEDS ORDERED: CHLORHEXIDINE 4% SOLN 118 ML BOTTLE TOP PRN (12:03)
[2019-11-29] MEDS ORDERED: MAGNESIUM SULF RIDER 4 GM in PREMIX 1 EACH IV PRN (12:03)
[2019-11-29] MEDS ORDERED: POTASSIUM CHLORIDE RIDER 10 MEQ in PREMIX 1 EACH IV PRN (12:03)
[2019-11-29] MEDS ORDERED: ACETAMINOPHEN 650 MG SUPP RECTAL PRN (12:03)
[2019-11-29] MEDS ORDERED: NITROPRUSSIDE 100 MG in DEXTROSE 5% 250 ML IV PRN (12:03)
[2019-11-29] MEDS ORDERED: INSULIN REGULAR 100 UNIT/ML IV ONE (12:03)
[2019-11-29] MEDS ORDERED: MAGNESIUM SULF RIDER 2 GM in PREMIX 1 EACH IV PRN (12:03)
[2019-11-29] MEDS ORDERED: CALCIUM CHLORIDE 1,000 MG/10 ML SYRINGE IV PRN (12:03)
[2019-11-29] MEDS ORDERED: DEXTROSE 10% 250 ML BAG IV PRN ×2 (12:07)
[2019-11-29] MEDS ORDERED: SEVOFLURANE 1 UNIT/15 MINUTE INH ONE (12:12)
[2019-11-29 12:15] LABS: Basophils # 0.1 10*3/uL (0.0-0.2); Basophils % 0.3 % (0.0-0.8); Eosinophils # 0.1 10*3/uL (0.0-0.87); Eosinophils % 0.7 % (0.00-10.9); Hemoglobin 10.9 GM/DL (14.0-18.0); Immature Granulocytes % 0.8 %; Immature Granulocytes Absolute 0.12 #; Lymphocytes # 0.5 10*3/uL (1.4-4.0); Lymphocytes % 3.6 % (21.2-54.2); Mean Corpuscular Volume 94.6 FL (87-102); Mean Platelet Volume 10.4 FL (9.6-12.0); Monocytes % 3.6 % (1.7-12.7); Platelet Count 199 T/CUMM (130-400); Red Blood Count 3.49 MC/CUMM (3.8-5.5); Red Cell Distribution Width 14.7 % (9.3-17.3); White Blood Count 14.4 T/CUMM (4-12)
[2019-11-29 12:16] LABS: ABG Base Excess 2.9 MMOL/L (-2.5-2.5); ABG Oxygen Saturation 99.5 % (95-100); ABG PCO2 39.4 MM HG (35-48); ABG PH 7.445 (7.35-7.45); ABG TCO2 24.2 MMOL/L (23-27); Glucose Heart Surgery 219 MG/DL (74-106); Potassium Heart/CVR 2.9 MMOL/L (3.5-5.1)
[2019-11-29 12:24] LABS: INR 1.2; PT Patient Result 12.7 SECS (9.6-12.2); Partial Thromboplastin Time 24.3 SECS (20.8-36.0)
[2019-11-29] MEDS ORDERED: DOBUTamine 500 MG/250 ML PREMIX IV PRN (12:27)
[2019-11-29] MEDS: POTASSIUM CHLORIDE RIDER 20 MEQ in PREMIX 1 EACH IV PRN ×8 (12:30→20:35)
[2019-11-29 12:44] LABS: CKMB % 11.4 %
[2019-11-29 12:49] LABS: Albumin 3.7 G/DL (3.4-5.0); Bilirubin,Total 1.8 MG/DL (0.2-1.0); Calcium 9.2 MG/DL (8.5-10.1); Osmolality,Calculated 271.4 MOS/KG (273-304); Total Protein 7.2 G/DL (6.4-8.3)
[2019-11-29 13:00] LABS: Lymphocytes 5 % (20-55); Segmented Neutrophils 94 % (50-85); Total Cells Counted 100
[2019-11-29 13:01] LABS: Platelet Estimate Normal
[2019-11-29] MEDS: INSULIN REGULAR DRIP 100 ML IV SCH (13:20)
[2019-11-29 13:38] LABS: ABG Base Excess 2.5 MMOL/L (-2.5-2.5); ABG HCO3 26.6 MMOL/L (20-26); ABG Oxygen Saturation 99.7 % (95-100); ABG PCO2 39.3 MM HG (35-48); ABG TCO2 23.7 MMOL/L (23-27); Glucose Heart Surgery 243 MG/DL (74-106); Hematocrit Heart Surgery 35.1 PERCENT (42-52); Hemoglobin Heart Surgery 11.4 G/DL (14.0-18.0); Potassium Heart/CVR 3.6 MMOL/L (3.5-5.1)
[2019-11-29 15:07] LABS: ABG Base Excess 0.6 MMOL/L (-2.5-2.5); ABG Oxygen Saturation 99.7 % (95-100); ABG PCO2 40.3 MM HG (35-48); ABG PH 7.406 (7.35-7.45); ABG TCO2 22.5 MMOL/L (23-27); Glucose Heart Surgery 253 MG/DL (74-106); Hematocrit Heart Surgery 35.5 PERCENT (42-52); Hemoglobin Heart Surgery 11.5 G/DL (14.0-18.0); Potassium Heart/CVR 3.6 MMOL/L (3.5-5.1)
[2019-11-29] MEDS: MORPHINE 4 MG/1 ML VIAL IV PRN ×3 (15:10→23:54)
[2019-11-29] MEDS: INSULIN REGULAR 100 UNIT/ML IV PRN ×3 (15:15→19:14)
[2019-11-29 17:41] LABS: ABG HCO3 23.6 MMOL/L (20-26); ABG Oxygen Saturation 98.2 % (95-100); ABG PCO2 36.9 MM HG (35-48); ABG PH 7.408 (7.35-7.45); ABG TCO2 20.8 MMOL/L (23-27); Glucose Heart Surgery 246 MG/DL (74-106); Hematocrit Heart Surgery 35.1 PERCENT (42-52); Hemoglobin Heart Surgery 11.4 G/DL (14.0-18.0); Potassium Heart/CVR 3.6 MMOL/L (3.5-5.1)
[2019-11-29] MEDS ORDERED: AMIODARONE INJ 150 MG in DEXTROSE 5% 100 ML IV ONE (18:00)
[2019-11-29] MEDS ORDERED: AMIODARONE INJ 450 MG in DEXTROSE 5% 241 ML IV SCH (18:00)
[2019-11-29] MEDS ORDERED: AMIODARONE 450 MG/9 ML VIAL IV ONE (18:06)
[2019-11-29] MEDS: PHENYLEPHRINE DRIP 40 MG/250 ML PREMIX IV PRN ×2 (18:12→21:11)
[2019-11-29] MEDS ORDERED: LIDOCAINE 100 MG/5 ML SYRINGE IV ONE ×2 (18:38→19:21)
[2019-11-29] MEDS: LACTATED RINGERS 1,000 ML IV PRN ×4 (19:00→21:19)
[2019-11-29] MEDS ORDERED: LIDOCAINE DRIP 2,000 MG/250 ML PREMIX IV SCH (19:00)
[2019-11-29] MEDS: LACTATED RINGERS 250 ML IV PRN (19:00)
[2019-11-29 19:05] LABS: ABG Base Excess -1.5 MMOL/L (-2.5-2.5); ABG HCO3 23.2 MMOL/L (20-26); ABG Oxygen Saturation 99.7 % (95-100); ABG PCO2 36.2 MM HG (35-48); ABG PH 7.406 (7.35-7.45); ABG TCO2 20.3 MMOL/L (23-27); Glucose Heart Surgery 258 MG/DL (74-106); Hematocrit Heart Surgery 34.3 PERCENT (42-52); Hemoglobin Heart Surgery 11.1 G/DL (14.0-18.0); Potassium Heart/CVR 4.5 MMOL/L (3.5-5.1)
[2019-11-29] MEDS ORDERED: LIDOCAINE IV ONE (19:23)
[2019-11-29] MEDS ORDERED: SODIUM BICARBONATE 50 MEQ/50 ML SYRINGE IV ONE (19:23)
[2019-11-29] MEDS ORDERED: MAGNESIUM SULFATE 1 GM/2 ML VIAL ONE (19:23)
[2019-11-29] MEDS ORDERED: EPINEPHrine 1 MG/10 ML SYRINGE ONE ×2 (19:23)
[2019-11-29] MEDS: LIDOCAINE DRIP 2,000 MG/250 ML PREMIX IV SCH (19:54)
[2019-11-29 20:03] LABS: ABG Base Excess -9.3 MMOL/L (-2.5-2.5); ABG Oxygen Saturation 98.5 % (95-100); ABG PCO2 42.1 MM HG (35-48); ABG PH 7.236 (7.35-7.45); ABG TCO2 16.4 MMOL/L (23-27); Glucose Heart Surgery 384 MG/DL (74-106); Hematocrit Heart Surgery 34.8 PERCENT (42-52); Hemoglobin Heart Surgery 11.3 G/DL (14.0-18.0); Potassium Heart/CVR 3.3 MMOL/L (3.5-5.1)
[2019-11-29] MEDS: SODIUM BICARBONATE 50 MEQ/50 ML VIAL IV PRN (20:04)
[2019-11-29] MEDS ORDERED: POTASSIUM CHLORIDE RIDER 200 ML IV ONE (20:06)
[2019-11-29] MEDS ORDERED: METOPROLOL TARTRATE 5 MG/5 ML VIAL IV ONE (20:14)
[2019-11-29] MEDS: ALBUMIN 5% 12.5 GM in PREMIX 1 EACH IV PRN ×2 (20:26→20:42)
[2019-11-29 20:39] LABS: ABG Base Excess -5.9 MMOL/L (-2.5-2.5); ABG HCO3 19.6 MMOL/L (20-26); ABG PCO2 38.8 MM HG (35-48); ABG PH 7.316 (7.35-7.45); ABG TCO2 18.2 MMOL/L (23-27); Glucose Heart Surgery 351 MG/DL (74-106); Hematocrit Heart Surgery 31.4 PERCENT (42-52); Hemoglobin Heart Surgery 10.2 G/DL (14.0-18.0); Potassium Heart/CVR 3.9 MMOL/L (3.5-5.1)
[2019-11-29 21:25] LABS: ABG Base Excess -7.6 MMOL/L (-2.5-2.5); ABG HCO3 18.2 MMOL/L (20-26); ABG Oxygen Saturation 99.8 % (95-100); ABG PH 7.292 (7.35-7.45); ABG TCO2 16.9 MMOL/L (23-27); Glucose Heart Surgery 390 MG/DL (74-106); Hematocrit Heart Surgery 31.1 PERCENT (42-52); Hemoglobin Heart Surgery 10.1 G/DL (14.0-18.0)
[2019-11-29] MEDS ORDERED: NOREPINEPHRINE 4 MG/4 ML VIAL IV ONE (21:28)
[2019-11-29] MEDS: NOREPINEPHRINE 8 MG in SODIUM CHLORIDE 0.9% 242 ML IV PRN (21:31)
[2019-11-29] MEDS ORDERED: FUROSEMIDE 40 MG/4 ML VIAL IV ONE (21:33)
[2019-11-29] MEDS: CEFUROXIME INJ 1,500 MG in SYRINGE 1 EACH IV SCH (22:20)
[2019-11-29 22:39] LABS: ABG Base Excess -2.3 MMOL/L (-2.5-2.5); ABG HCO3 22.5 MMOL/L (20-26); ABG PCO2 37.8 MM HG (35-48); ABG PH 7.381 (7.35-7.45); ABG TCO2 20.2 MMOL/L (23-27); Glucose Heart Surgery 376 MG/DL (74-106); Hematocrit Heart Surgery 33.7 PERCENT (42-52); Hemoglobin Heart Surgery 10.9 G/DL (14.0-18.0); Potassium Heart/CVR 3.8 MMOL/L (3.5-5.1)
[2019-11-29 22:59] LABS: CKMB % 7.7 %
[2019-11-29 23:01] LABS: Troponin I 12.5 NG/ML (0.00-0.045)
[2019-11-30] MEDS: INSULIN REGULAR DRIP 100 ML IV SCH ×2 (00:20→19:59)
[2019-11-30] MEDS: PHENYLEPHRINE DRIP 40 MG/250 ML PREMIX IV PRN (00:41)
[2019-11-30] MEDS: CHLORHEXIDINE 0.12% ORAL RINSE 60 ML BOTTLE SWISH/SPIT SCH ×3 (00:46→20:01)
[2019-11-30] MEDS: MORPHINE 4 MG/1 ML VIAL IV PRN ×3 (01:02→17:15)
[2019-11-30 01:34] LABS: Hematocrit Heart Surgery 35.6 PERCENT (42-52); Hemoglobin Heart Surgery 11.5 G/DL (14.0-18.0); PCO2 Patient Temp Venous 53.4 MM HG; PH Patient Temp Venous 7.331; PO2 Patient Temp Venous 28.8 MM HG; VBG Base Excess 1.3 MEQ/L (0-4); VBG HCO3 24.4 MEQ/L (24-28); VBG Oxygen Saturation 37.9 %; VBG PCO2 53.4 MMHG (41-51); VBG PH 7.331; VBG PO2 28.8 MMHG (17-40)
[2019-11-30] MEDS: AMIODARONE INJ 450 MG in DEXTROSE 5% 241 ML IV SCH ×4 (02:48→17:00)
[2019-11-30 03:15] LABS: ABG Base Excess -1.1 MMOL/L (-2.5-2.5); ABG HCO3 21.8 MMOL/L (20-26); ABG Oxygen Saturation 99.2 % (95-100); ABG PCO2 30.8 MM HG (35-48); ABG PH 7.468 (7.35-7.45); ABG PO2 320.6 MM HG (80-95); ABG TCO2 22.8 MMOL/L (23-27); Glucose Heart Surgery 237 MG/DL (74-106); Hemoglobin Heart Surgery 11.8 G/DL (14.0-18.0)
[2019-11-30] MEDS: ALBUMIN 5% 12.5 GM in PREMIX 1 EACH IV PRN ×5 (03:16→17:33)
[2019-11-30 03:24] LABS: Basophils % 0.1 % (0.0-0.8); Hematocrit 34.9 VOL% (42.0-52.0); Hemoglobin 11.3 GM/DL (14.0-18.0); Immature Granulocytes % 0.6 %; Immature Granulocytes Absolute 0.08 #; Lymphocytes # 0.4 10*3/uL (1.4-4.0); Lymphocytes % 3.2 % (21.2-54.2); Mean Corpuscular HGB Conc 32.4 GM/DL (32-36); Mean Corpuscular Volume 95.9 FL (87-102); Mean Platelet Volume 10.9 FL (9.6-12.0); NRBC # 0.02 10*3/uL; Neutrophils % 92.1 % (38.7-73.9); Platelet Count 172 T/CUMM (130-400); Red Blood Count 3.64 MC/CUMM (3.8-5.5); Red Cell Distribution Width 14.9 % (9.3-17.3); White Blood Count 13.6 T/CUMM (4-12)
[2019-11-30 03:33] LABS: INR 1.4; PT Patient Result 15.6 SECS (9.6-12.2); Partial Thromboplastin Time 32.9 SECS (20.8-36.0)
[2019-11-30 03:43] LABS: CKMB % 6.1 %
[2019-11-30] MEDS ORDERED: EPINEPHrine 1 MG/10 ML SYRINGE ONE (03:53)
[2019-11-30] MEDS ORDERED: LIDOCAINE 100 MG/5 ML SYRINGE ONE (03:53)
[2019-11-30] MEDS ORDERED: SODIUM BICARBONATE 50 MEQ/50 ML SYRINGE IV ONE (03:53)
[2019-11-30] MEDS ORDERED: AMIODARONE 150 MG/3 ML VIAL ONE (03:53)
[2019-11-30] MEDS: LIDOCAINE DRIP 2,000 MG/250 ML PREMIX IV SCH (04:00)
[2019-11-30 04:04] LABS: Troponin I 12.9 NG/ML (0.00-0.045)
[2019-11-30 04:13] LABS: Band Neutrophils 7 % (0-10); Lymphocytes 2 % (20-55); Segmented Neutrophils 87 % (50-85)
[2019-11-30 04:14] LABS: Platelet Estimate Normal
[2019-11-30 04:15] LABS: Hypochromasia Slight; Ovalocytes 1+
[2019-11-30 04:16] LABS: Total Cells Counted 100
[2019-11-30] MEDS: NOREPINEPHRINE 8 MG in SODIUM CHLORIDE 0.9% 242 ML IV PRN ×2 (04:20→11:49)
[2019-11-30 04:45] LABS: Albumin 3.3 G/DL (3.4-5.0); Bilirubin,Direct 1.09 MG/DL (0.0-0.20); Bilirubin,Total 1.9 MG/DL (0.2-1.0); Calcium 8.9 MG/DL (8.5-10.1); Osmolality,Calculated 282.8 MOS/KG (273-304); Total Protein 5.9 G/DL (6.4-8.3)
[2019-11-30] MEDS ORDERED: NITROGLYCERIN DRIP 50 MG/250 ML BOTTLE IV ONE (06:01)
[2019-11-30] MEDS ORDERED: NITROGLYCERIN DRIP 50 MG/250 ML BOTTLE IV PRN (06:12)
[2019-11-30] MEDS: CEFUROXIME INJ 1,500 MG in SYRINGE 1 EACH IV SCH ×2 (06:42→19:00)
[2019-11-30 07:59] LABS: ABG Base Excess -1.3 MMOL/L (-2.5-2.5); ABG HCO3 23.4 MMOL/L (20-26); ABG Oxygen Saturation 99.5 % (95-100); ABG PCO2 33.7 MM HG (35-48); ABG PH 7.431 (7.35-7.45); ABG TCO2 20.1 MMOL/L (23-27); Glucose Heart Surgery 144 MG/DL (74-106); Hematocrit Heart Surgery 33.4 PERCENT (42-52); Hemoglobin Heart Surgery 10.8 G/DL (14.0-18.0); Potassium Heart/CVR 4.3 MMOL/L (3.5-5.1)
[2019-11-30 12:30] LABS: ABG Base Excess -3.1 MMOL/L (-2.5-2.5); ABG HCO3 19.8 MMOL/L (20-26); ABG Oxygen Saturation 98.9 % (95-100); ABG PCO2 29.2 MM HG (35-48); ABG PO2 180.9 MM HG (80-95); ABG TCO2 20.7 MMOL/L (23-27); Glucose Heart Surgery 90 MG/DL (74-106); Hemoglobin Heart Surgery 11.8 G/DL (14.0-18.0); Potassium Heart/CVR 5.4 MMOL/L (3.5-5.1)
[2019-11-30] MEDS: LACTATED RINGERS 250 ML IV PRN ×2 (13:00→13:16)
[2019-11-30] MEDS: POLYVINYL ALCOHOL 1.4% OPH SOLN 15 ML BOTTLE BOTH EYES PRN (14:10)
[2019-11-30] MEDS ORDERED: FUROSEMIDE 40 MG/4 ML VIAL IV ONE ×2 (15:09→18:08)
[2019-11-30 15:54] LABS: ABG Base Excess -3.4 MMOL/L (-2.5-2.5); ABG HCO3 21.6 MMOL/L (20-26); ABG Oxygen Saturation 99.5 % (95-100); ABG PCO2 31.5 MM HG (35-48); ABG PH 7.415 (7.35-7.45); Glucose Heart Surgery 152 MG/DL (74-106); Hematocrit Heart Surgery 35.8 PERCENT (42-52); Hemoglobin Heart Surgery 11.6 G/DL (14.0-18.0)
[2019-11-30 15:58] LABS: Potassium Heart/CVR 6.2 MMOL/L (3.5-5.1)
[2019-11-30 16:20] LABS: CKMB % 2.4 %
[2019-11-30 16:22] LABS: Troponin I 14.6 NG/ML (0.00-0.045)
[2019-11-30] MEDS: NOREPINEPHRINE 16 MG in SODIUM CHLORIDE 0.9% 234 ML IV PRN (18:15)
[2019-11-30] MEDS: FUROSEMIDE INJ 200 MG in SODIUM CHLORIDE 0.9% 80 ML IV SCH (18:54)
[2019-11-30 19:23] LABS: ABG Base Excess -6.4 MMOL/L (-2.5-2.5); ABG HCO3 19.2 MMOL/L (20-26); ABG Oxygen Saturation 97.7 % (95-100); ABG PCO2 33.2 MM HG (35-48); ABG PH 7.351 (7.35-7.45); ABG TCO2 16.4 MMOL/L (23-27); Glucose Heart Surgery 100 MG/DL (74-106); Hematocrit Heart Surgery 36.1 PERCENT (42-52); Hemoglobin Heart Surgery 11.7 G/DL (14.0-18.0)
[2019-11-30 19:26] LABS: Potassium Heart/CVR 6.5 MMOL/L (3.5-5.1)
[2019-11-30] MEDS ORDERED: INSULIN REGULAR 100 UNIT/ML IV ONE ×2 (19:42→22:42)
[2019-11-30] MEDS ORDERED: SODIUM BICARBONATE 50 MEQ/50 ML VIAL IV ONE ×2 (19:42→22:42)
[2019-11-30] MEDS ORDERED: DEXTROSE 10% 250 ML BAG IV ONE ×2 (19:42→22:42)
[2019-11-30] MEDS: MORPHINE 10 MG/1 ML VIAL IV PRN ×2 (19:55→20:46)
[2019-11-30] MEDS: SODIUM CHLORIDE 0.45% 1,000 ML IV SCH ×2 (19:59)
[2019-11-30 22:13] LABS: ABG Base Excess -5.5 MMOL/L (-2.5-2.5); ABG HCO3 19.9 MMOL/L (20-26); ABG Oxygen Saturation 96.6 % (95-100); ABG PCO2 32.8 MM HG (35-48); ABG PH 7.369 (7.35-7.45); ABG PO2 93.2 MM HG (80-95); ABG TCO2 16.9 MMOL/L (23-27); Glucose Heart Surgery 126 MG/DL (74-106); Hematocrit Heart Surgery 35.8 PERCENT (42-52); Hemoglobin Heart Surgery 11.6 G/DL (14.0-18.0)
[2019-11-30 22:16] LABS: Potassium Heart/CVR 6.2 MMOL/L (3.5-5.1)
[2019-12-01 00:18] LABS: ABG Base Excess -4.8 MMOL/L (-2.5-2.5); ABG HCO3 18.9 MMOL/L (20-26); ABG Oxygen Saturation 96.2 % (95-100); ABG PH 7.403 (7.35-7.45); ABG PO2 92.9 MM HG (80-95); ABG TCO2 19.9 MMOL/L (23-27); Glucose Heart Surgery 142 MG/DL (74-106); Potassium Heart/CVR 5.8 MMOL/L (3.5-5.1)
[2019-12-01] MEDS: AMIODARONE INJ 450 MG in DEXTROSE 5% 241 ML IV SCH ×4 (01:36→19:00)
[2019-12-01] MEDS: MORPHINE 10 MG/1 ML VIAL IV PRN ×2 (04:40→20:48)
[2019-12-01 04:47] LABS: ABG Base Excess -3.1 MMOL/L (-2.5-2.5); ABG HCO3 21.9 MMOL/L (20-26); ABG Oxygen Saturation 98.9 % (95-100); ABG PCO2 33.5 MM HG (35-48); ABG PH 7.404 (7.35-7.45); ABG TCO2 18.7 MMOL/L (23-27); Glucose Heart Surgery 112 MG/DL (74-106); Hematocrit Heart Surgery 35.3 PERCENT (42-52); Hemoglobin Heart Surgery 11.5 G/DL (14.0-18.0)
[2019-12-01 05:02] LABS: Basophils % 0.1 % (0.0-0.8); Hematocrit 35.6 VOL% (42.0-52.0); Hemoglobin 11.3 GM/DL (14.0-18.0); Immature Granulocytes % 1.1 %; Immature Granulocytes Absolute 0.35 #; Lymphocytes # 0.7 10*3/uL (1.4-4.0); Lymphocytes % 2.1 % (21.2-54.2); Mean Corpuscular HGB Conc 31.7 GM/DL (32-36); Mean Corpuscular Volume 98.6 FL (87-102); Mean Platelet Volume 12.7 FL (9.6-12.0); Monocytes % 7.8 % (1.7-12.7); NRBC # 0.28 10*3/uL; Neutrophils % 88.9 % (38.7-73.9); Red Blood Count 3.61 MC/CUMM (3.8-5.5); Red Cell Distribution Width 15.4 % (9.3-17.3); White Blood Count 31.7 T/CUMM (4-12)
[2019-12-01 05:12] LABS: Platelet Count 80 T/CUMM (130-400)
[2019-12-01 05:18] LABS: INR 2.5; Partial Thromboplastin Time 33.8 SECS (20.8-36.0)
[2019-12-01] MEDS: FUROSEMIDE INJ 200 MG in SODIUM CHLORIDE 0.9% 80 ML IV SCH ×2 (05:31→18:02)
[2019-12-01 05:35] LABS: CKMB % 0.7 %
[2019-12-01 05:39] LABS: Troponin I 17.5 NG/ML (0.00-0.045)
[2019-12-01 05:57] LABS: PT Patient Result 27.2 SECS (9.6-12.2)
[2019-12-01 06:39] LABS: Albumin 3.8 G/DL (3.4-5.0); Bilirubin,Direct 2.54 MG/DL (0.0-0.20); Bilirubin,Total 3.9 MG/DL (0.2-1.0); Calcium 8.8 MG/DL (8.5-10.1); Osmolality,Calculated 278.1 MOS/KG (273-304); Total Protein 6.1 G/DL (6.4-8.3)
[2019-12-01] MEDS: CEFUROXIME INJ 1,500 MG in SYRINGE 1 EACH IV SCH ×2 (07:30→19:52)
[2019-12-01] MEDS: SODIUM POLYSTYRENE SULFATE 15 GM/60 ML BOTTLE PO SCH ×2 (08:02→21:16)
[2019-12-01] MEDS: CHLORHEXIDINE 0.12% ORAL RINSE 60 ML BOTTLE SWISH/SPIT SCH ×2 (08:03→21:52)
[2019-12-01 08:22] LABS: Band Neutrophils 10 % (0-10); Lymphocytes 2 % (20-55); Metamyelocytes 1 %; Segmented Neutrophils 83 % (50-85); Total Cells Counted 100
[2019-12-01 08:23] LABS: Macrocytosis Slight; Ovalocytes Slight
[2019-12-01 08:24] LABS: Platelet Estimate Decreased
[2019-12-01 08:56] LABS: Amorphous Crystals,Urine Few /HPF (Few); Apearance,Urine CLOUDY (Clear); Bacteria,Urine Occasional /HPF (Few); Bilirubin,Urine Negative (Negative); Blood, Urine Moderate mg/dL (Negative); Glucose,Urine (UA) Negative (Negative); Granular Casts,Urine 4 /LPF (0-1); Hyaline Casts,Urine 3 /LPF (0-3); Ketones,Urine Negative (Negative); Nitrite,Urine Negative (Negative); Protein,Urine 100 MG/DL; RBC,Urine 1 /HPF (0-4); Squamous Epithelial Cell,Urine Occasional /HPF (0-10); Urine Color Yellow (Yellow); Urine Specific Gravity 1.013 (1.001-1.035); Urine Urobilinogen < 2.0 EU/DL (0.2-1.0); WBC,Urine 3 /HPF (0-6)
[2019-12-01] MEDS ORDERED: SODIUM POLYSTYRENE SULFATE 15 GM/60 ML BOTTLE RECTAL PRN (09:50)
[2019-12-01] MEDS ORDERED: SODIUM POLYSTYRENE SULFATE 15 GM/60 ML BOTTLE PO PRN (09:50)
[2019-12-01] MEDS ORDERED: HEPARIN/NACL 0.9% 2 UNITS/ML 500 ML IV ONE (10:04)
[2019-12-01 11:41] LABS: ABG Base Excess -5.4 MMOL/L (-2.5-2.5); ABG Oxygen Saturation 99.2 % (95-100); ABG PCO2 34.4 MM HG (35-48); ABG PH 7.357 (7.35-7.45); ABG TCO2 17.5 MMOL/L (23-27); Glucose Heart Surgery 122 MG/DL (74-106); Hematocrit Heart Surgery 33.3 PERCENT (42-52); Hemoglobin Heart Surgery 10.8 G/DL (14.0-18.0)
[2019-12-01 11:43] LABS: Potassium Heart/CVR 6.3 MMOL/L (3.5-5.1)
[2019-12-01] MEDS: SODIUM CHLORIDE 0.45% 1,000 ML IV SCH ×2 (12:05)
[2019-12-01] MEDS: INSULIN REGULAR DRIP 100 ML IV SCH (12:10)
[2019-12-01] MEDS ORDERED: AMIODARONE INJ 150 MG in DEXTROSE 5% 100 ML IV ONE (16:31)
[2019-12-01] MEDS ORDERED: AMIODARONE 150 MG/3 ML VIAL ONE (16:34)
[2019-12-01 17:09] LABS: ABG Base Excess -9.5 MMOL/L (-2.5-2.5); ABG HCO3 16.8 MMOL/L (20-26); ABG PCO2 35.6 MM HG (35-48); ABG PH 7.276 (7.35-7.45); ABG PO2 85.5 MM HG (80-95); ABG TCO2 15.2 MMOL/L (23-27); Glucose Heart Surgery 159 MG/DL (74-106); Hematocrit Heart Surgery 32.8 PERCENT (42-52); Hemoglobin Heart Surgery 10.6 G/DL (14.0-18.0); Potassium Heart/CVR 5.9 MMOL/L (3.5-5.1)
[2019-12-01] MEDS: NOREPINEPHRINE 16 MG in SODIUM CHLORIDE 0.9% 234 ML IV PRN (18:15)
[2019-12-01 18:29] LABS: ABG Base Excess -8.5 MMOL/L (-2.5-2.5); ABG HCO3 17.6 MMOL/L (20-26); ABG PCO2 33.9 MM HG (35-48); ABG PH 7.308 (7.35-7.45); ABG TCO2 15.5 MMOL/L (23-27); Glucose Heart Surgery 146 MG/DL (74-106); Hematocrit Heart Surgery 32.5 PERCENT (42-52); Hemoglobin Heart Surgery 10.5 G/DL (14.0-18.0); Potassium Heart/CVR 5.6 MMOL/L (3.5-5.1)
[2019-12-01 20:34] LABS: ABG Base Excess -6.2 MMOL/L (-2.5-2.5); ABG HCO3 19.3 MMOL/L (20-26); ABG Oxygen Saturation 99.4 % (95-100); ABG PCO2 34.6 MM HG (35-48); ABG PH 7.343 (7.35-7.45); ABG TCO2 17.1 MMOL/L (23-27); Glucose Heart Surgery 147 MG/DL (74-106); Hematocrit Heart Surgery 31.8 PERCENT (42-52); Hemoglobin Heart Surgery 10.3 G/DL (14.0-18.0); Potassium Heart/CVR 5.8 MMOL/L (3.5-5.1)
[2019-12-02 00:12] LABS: ABG HCO3 21.1 MMOL/L (20-26); ABG PCO2 36.1 MM HG (35-48); ABG PH 7.368 (7.35-7.45); ABG TCO2 18.9 MMOL/L (23-27); Glucose Heart Surgery 130 MG/DL (74-106); Hematocrit Heart Surgery 31.1 PERCENT (42-52); Hemoglobin Heart Surgery 10.1 G/DL (14.0-18.0); Potassium Heart/CVR 5.9 MMOL/L (3.5-5.1)
[2019-12-02] MEDS: LIDOCAINE DRIP 2,000 MG/250 ML PREMIX IV SCH ×4 (01:34→21:06)
[2019-12-02] MEDS: FUROSEMIDE INJ 200 MG in SODIUM CHLORIDE 0.9% 80 ML IV SCH ×3 (01:34→10:32)
[2019-12-02] MEDS: MORPHINE 10 MG/1 ML VIAL IV PRN (01:56)
[2019-12-02] MEDS: AMIODARONE INJ 450 MG in DEXTROSE 5% 241 ML IV SCH ×6 (01:56→18:42)
[2019-12-02] MEDS ORDERED: LIDOCAINE 50 MG/5 ML SYRINGE IV ONE (02:45)
[2019-12-02] MEDS ORDERED: LIDOCAINE 100 MG/5 ML SYRINGE ONE (02:48)
[2019-12-02 03:16] LABS: ABG Base Excess -2.3 MMOL/L (-2.5-2.5); ABG HCO3 22.5 MMOL/L (20-26); ABG Oxygen Saturation 98.9 % (95-100); ABG PCO2 35.2 MM HG (35-48); ABG PH 7.402 (7.35-7.45); ABG TCO2 19.9 MMOL/L (23-27); Glucose Heart Surgery 123 MG/DL (74-106); Hemoglobin Heart Surgery 10.4 G/DL (14.0-18.0); Potassium Heart/CVR 5.9 MMOL/L (3.5-5.1)
[2019-12-02 03:20] LABS: Basophils % 0.1 % (0.0-0.8); Hematocrit 30.7 VOL% (42.0-52.0); Immature Granulocytes % 1.3 %; Immature Granulocytes Absolute 0.34 #; Lymphocytes # 0.8 10*3/uL (1.4-4.0); Lymphocytes % 2.8 % (21.2-54.2); Mean Corpuscular HGB Conc 32.6 GM/DL (32-36); Mean Corpuscular Volume 96.8 FL (87-102); Mean Platelet Volume 11.8 FL (9.6-12.0); Monocytes % 5.4 % (1.7-12.7); NRBC # 0.24 10*3/uL; Neutrophils % 90.4 % (38.7-73.9); Red Blood Count 3.17 MC/CUMM (3.8-5.5); Red Cell Distribution Width 15.4 % (9.3-17.3); White Blood Count 26.8 T/CUMM (4-12)
[2019-12-02 03:22] LABS: Platelet Count 73 T/CUMM (130-400)
[2019-12-02 04:03] LABS: Band Neutrophils 1 % (0-10); Hypochromasia 1+; Lymphocytes 4 % (20-55); Macrocytosis Slight; Ovalocytes Slight; Platelet Estimate Decreased; Segmented Neutrophils 94 % (50-85); Total Cells Counted 100
[2019-12-02 04:06] LABS: Partial Thromboplastin Time 32.9 SECS (20.8-36.0)
[2019-12-02 04:11] LABS: INR 2.1
[2019-12-02 04:18] LABS: PT Patient Result 22.9 SECS (9.6-12.2)
[2019-12-02 04:30] LABS: Albumin 3.2 G/DL (3.4-5.0); Bilirubin,Direct 3.75 MG/DL (0.0-0.20); Bilirubin,Total 5.5 MG/DL (0.2-1.0); Osmolality,Calculated 294.7 MOS/KG (273-304); Total Protein 5.6 G/DL (6.4-8.3)
[2019-12-02] MEDS: NOREPINEPHRINE 16 MG in SODIUM CHLORIDE 0.9% 234 ML IV PRN ×3 (04:40→21:47)
[2019-12-02] MEDS ORDERED: AMIODARONE INJ 50 MG in DEXTROSE 5% 100 ML IV ONE (05:56)
[2019-12-02] MEDS: EPINEPHrine 1 MG/10 ML SYRINGE IV PRN (07:52)
[2019-12-02] MEDS: SODIUM BICARBONATE 50 MEQ/50 ML VIAL IV PRN (07:55)
[2019-12-02 08:18] LABS: ABG HCO3 21.9 MMOL/L (20-26); ABG Oxygen Saturation 96.4 % (95-100); ABG PCO2 39.4 MM HG (35-48); ABG PH 7.358 (7.35-7.45); ABG PO2 99.4 MM HG (80-95); ABG TCO2 20.2 MMOL/L (23-27); Glucose Heart Surgery 115 MG/DL (74-106); Hematocrit Heart Surgery 31.3 PERCENT (42-52); Hemoglobin Heart Surgery 10.1 G/DL (14.0-18.0); Potassium Heart/CVR 5.6 MMOL/L (3.5-5.1)
[2019-12-02] MEDS: CEFUROXIME INJ 1,500 MG in SYRINGE 1 EACH IV SCH (09:31)
[2019-12-02] MEDS: CHLORHEXIDINE 0.12% ORAL RINSE 60 ML BOTTLE SWISH/SPIT SCH ×2 (09:32→21:49)
[2019-12-02] MEDS: SODIUM POLYSTYRENE SULFATE 15 GM/60 ML BOTTLE PO SCH ×2 (09:32→21:05)
[2019-12-02] MEDS: POLYVINYL ALCOHOL 1.4% OPH SOLN 15 ML BOTTLE BOTH EYES PRN (09:35)
[2019-12-02 10:58] LABS: Hepatitis B Core IgM Quant 0.08 Index; Hepatitis B Surface Ag Quant < 0.10 Index; Hepatitis B Surface Ag Result Negative (Negative); Hepatitis C Virus Ab Quant 0.04 Index; Hepatitis C Virus Ab Result Negative (Negative)
[2019-12-02] MEDS ORDERED: HEPARIN 10,000 UNIT/10 ML VIAL IV PRN (11:43)
[2019-12-02] MEDS: LACTULOSE 20 GM/30 ML UDCUP PO SCH ×2 (12:04→21:06)
[2019-12-02] MEDS: CEFEPIME 1,000 MG in SODIUM CHLORIDE 0.9% 100 ML IV SCH (12:04)
[2019-12-02 12:10] LABS: ABG Base Excess -1.7 MMOL/L (-2.5-2.5); ABG Oxygen Saturation 99.7 % (95-100); ABG PCO2 37.5 MM HG (35-48); ABG PH 7.393 (7.35-7.45); ABG TCO2 20.8 MMOL/L (23-27); Glucose Heart Surgery 114 MG/DL (74-106); Hematocrit Heart Surgery 30.7 PERCENT (42-52); Hemoglobin Heart Surgery 9.9 G/DL (14.0-18.0); Potassium Heart/CVR 4.8 MMOL/L (3.5-5.1)
[2019-12-02] MEDS: INSULIN REGULAR DRIP 100 ML IV SCH (12:26)
[2019-12-02 15:00] LABS: Glucose Heart Surgery 93 MG/DL (74-106); Hemoglobin Heart Surgery 9.8 G/DL (14.0-18.0); Potassium Heart/CVR 5.4 MMOL/L (3.5-5.1); Sodium Heart/CVR 133 MMOL/L (135-145); VBG Base Excess -2.4 MEQ/L (0-4); VBG HCO3 23.7 MEQ/L (24-28); VBG Oxygen Saturation 30.3 %; VBG PCO2 46.9 MMHG (41-51); VBG PH 7.321; VBG PO2 27.3 MMHG (17-40)
[2019-12-02] MEDS: SODIUM CHLORIDE 0.45% 1,000 ML IV SCH ×2 (15:45→15:46)
[2019-12-02 16:36] LABS: ABG Base Excess -4.2 MMOL/L (-2.5-2.5); ABG HCO3 20.9 MMOL/L (20-26); ABG Oxygen Saturation 99.4 % (95-100); ABG PCO2 34.2 MM HG (35-48); ABG TCO2 18.5 MMOL/L (23-27); Glucose Heart Surgery 101 MG/DL (74-106); Hematocrit Heart Surgery 30.4 PERCENT (42-52); Hemoglobin Heart Surgery 9.8 G/DL (14.0-18.0); Potassium Heart/CVR 5.5 MMOL/L (3.5-5.1)
[2019-12-02 19:37] LABS: ABG HCO3 21.1 MMOL/L (20-26); ABG PCO2 33.9 MM HG (35-48); ABG PH 7.387 (7.35-7.45); ABG TCO2 18.6 MMOL/L (23-27); Glucose Heart Surgery 101 MG/DL (74-106); Hematocrit Heart Surgery 30.4 PERCENT (42-52); Hemoglobin Heart Surgery 9.8 G/DL (14.0-18.0); Potassium Heart/CVR 5.5 MMOL/L (3.5-5.1)
[2019-12-02] MEDS: INSULIN REGULAR 100 UNIT/ML SUBCUT SCH (20:59)
[2019-12-03 00:10] LABS: ABG Base Excess -5.2 MMOL/L (-2.5-2.5); ABG HCO3 19.1 MMOL/L (20-26); ABG Oxygen Saturation 98.6 % (95-100); ABG PCO2 32.7 MM HG (35-48); ABG PH 7.384 (7.35-7.45); ABG PO2 176.5 MM HG (80-95); ABG TCO2 20.1 MMOL/L (23-27); Glucose Heart Surgery 87 MG/DL (74-106); Hemoglobin Heart Surgery 10.2 G/DL (14.0-18.0); Potassium Heart/CVR 5.5 MMOL/L (3.5-5.1)
[2019-12-03] MEDS: INSULIN REGULAR 100 UNIT/ML SUBCUT SCH ×5 (00:51→17:10)
[2019-12-03] MEDS: POLYVINYL ALCOHOL 1.4% OPH SOLN 15 ML BOTTLE BOTH EYES PRN ×2 (01:25→10:34)
[2019-12-03] MEDS: AMIODARONE INJ 450 MG in DEXTROSE 5% 241 ML IV SCH ×3 (01:46→17:46)
[2019-12-03] MEDS ORDERED: HEPARIN/NACL 0.9% 2 UNITS/ML 500 ML IV ONE (03:06)
[2019-12-03 03:29] LABS: ABG Base Excess -5.2 MMOL/L (-2.5-2.5); ABG HCO3 20.1 MMOL/L (20-26); ABG Oxygen Saturation 99.3 % (95-100); ABG PCO2 30.8 MM HG (35-48); ABG PH 7.394 (7.35-7.45); ABG TCO2 17.2 MMOL/L (23-27); Glucose Heart Surgery 103 MG/DL (74-106); Hematocrit Heart Surgery 29.8 PERCENT (42-52); Hemoglobin Heart Surgery 9.6 G/DL (14.0-18.0); Potassium Heart/CVR 5.5 MMOL/L (3.5-5.1)
[2019-12-03 03:37] LABS: Basophils % 0.1 % (0.0-0.8); Hematocrit 29.2 VOL% (42.0-52.0); Hemoglobin 9.4 GM/DL (14.0-18.0); Immature Granulocytes Absolute 0.48 #; Lymphocytes # 1.1 10*3/uL (1.4-4.0); Lymphocytes % 4.3 % (21.2-54.2); Mean Corpuscular HGB Conc 32.2 GM/DL (32-36); Mean Corpuscular Volume 96.1 FL (87-102); Mean Platelet Volume 11.9 FL (9.6-12.0); Monocytes % 10.6 % (1.7-12.7); Platelet Count 95 T/CUMM (130-400); Red Blood Count 3.04 MC/CUMM (3.8-5.5); Red Cell Distribution Width 15.4 % (9.3-17.3); White Blood Count 24.3 T/CUMM (4-12)
[2019-12-03 03:55] LABS: Hypochromasia 1+; Lymphocytes 1 % (20-55); Macrocytosis Slight; Nucleated Red Blood Cells 3 (0-5); Ovalocytes Slight; Platelet Estimate Decreased; Segmented Neutrophils 93 % (50-85); Total Cells Counted 100
[2019-12-03 04:16] LABS: Bilirubin,Total 8.8 MG/DL (0.2-1.0); Calcium 7.5 MG/DL (8.5-10.1); Osmolality,Calculated 290.1 MOS/KG (273-304); Total Protein 5.5 G/DL (6.4-8.3)
[2019-12-03] MEDS: NOREPINEPHRINE 16 MG in SODIUM CHLORIDE 0.9% 234 ML IV PRN ×2 (05:44→13:02)
[2019-12-03 08:03] LABS: ABG Base Excess -5.5 MMOL/L (-2.5-2.5); ABG HCO3 19.9 MMOL/L (20-26); ABG Oxygen Saturation 99.1 % (95-100); ABG PCO2 33.2 MM HG (35-48); ABG PH 7.367 (7.35-7.45); ABG TCO2 17.6 MMOL/L (23-27); Glucose Heart Surgery 101 MG/DL (74-106); Hematocrit Heart Surgery 28.4 PERCENT (42-52); Hemoglobin Heart Surgery 9.1 G/DL (14.0-18.0); Potassium Heart/CVR 5.5 MMOL/L (3.5-5.1)
[2019-12-03] MEDS: EPINEPHrine 1 MG/10 ML SYRINGE IV PRN (08:46)
[2019-12-03] MEDS: SODIUM POLYSTYRENE SULFATE 15 GM/60 ML BOTTLE PO SCH (09:22)
[2019-12-03] MEDS: LACTULOSE 20 GM/30 ML UDCUP PO SCH (09:22)
[2019-12-03] MEDS: CHLORHEXIDINE 0.12% ORAL RINSE 60 ML BOTTLE SWISH/SPIT SCH (09:23)
[2019-12-03] MEDS: CEFEPIME 1,000 MG in SODIUM CHLORIDE 0.9% 100 ML IV SCH (09:24)
[2019-12-03] MEDS: MORPHINE 4 MG/1 ML VIAL IV PRN (09:25)
[2019-12-03] MEDS ORDERED: PIPERACILLIN/TAZOBACTAM 3,375 MG in SODIUM CHLORIDE 0.9% 100 ML IV SCH (11:00)
[2019-12-03] MEDS: LIDOCAINE DRIP 2,000 MG/250 ML PREMIX IV SCH (12:33)
[2019-12-03] MEDS: PHENYLEPHRINE DRIP 40 MG/250 ML PREMIX IV PRN (13:11)
[2019-12-03] MEDS: SODIUM CHLORIDE 0.45% 1,000 ML IV SCH ×2 (14:00→14:01)
[2019-12-03] MEDS ORDERED: PANTOPRAZOLE 40 MG VIAL IV SCH ×2 (15:01→15:30)
[2019-12-03] MEDS ORDERED: LORazepam 2 MG/1 ML VIAL ONE (16:21)
[2019-12-03] MEDS ORDERED: CALCIUM CHLORIDE 1,000 MG/10 ML VIAL IV ONE (16:22)
[2019-12-03] MEDS ORDERED: EPINEPHrine 1 MG/10 ML SYRINGE ONE (16:22)
[2019-12-03] MEDS ORDERED: EPINEPHrine 1 MG/ML VIAL ONE (16:22)
[2019-12-03] MEDS ORDERED: ATROPINE 1 MG/10 ML SYRINGE ONE (16:22)
[2019-12-03] MEDS ORDERED: CALCIUM CHLORIDE 1,000 MG/10 ML SYRINGE IV ONE (16:22)
[2019-12-03] MEDS ORDERED: SODIUM BICARBONATE 10 MEQ/10 ML SYRINGE IV ONE (16:22)
[2019-12-03] MEDS ORDERED: LIDOCAINE IV ONE (16:22)
[2019-12-03] MEDS ORDERED: LIDOCAINE DRIP 2,000 MG/250 ML PREMIX IV SCH (17:15)
[2019-12-03 17:53] VITALS: BP 90/65
[2019-12-04] MEDS ORDERED: PANTOPRAZOLE 40 MG VIAL IV SCH (15:00)
== END 2019-12-03 20:16 | disposition expired | DRG 235 ==
LOC: N.CL 06:06 → N.CC 06:07 → N.CL 06:07 → N.CC 09:49 → N.CVR 11-29 11:29
PROVIDERS: ADMIT Internal Medicine Cardiovascular Disease; ATTEND Internal Medicine Cardiovascular Disease